=== PATIENT | male | born 1970 | race Caucasian/White ===

== ENCOUNTER 2023-12-02 23:01 | Emergency (ER) | payer OTHER ==
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
[2023-12-02 23:54] VITALS: RESP 16; TEMP 97.6
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
[2023-12-03] MEDS: LORazepam 2 MG/ML INJ IM STA (00:54)
[2023-12-03 01:03] VITALS: BP 133/52; PULSE 81
== END 2023-12-03 00:54 | disposition home or self-care (01) ==
LOC: EC 23:01
DX: S00.83XA Contusion of other part of head, initial encounter (principal); W05.2XXA Fall from non-moving motorized mobility scooter, initial encounter; Y93.55 Activity, bike riding
CPT/HCPCS: 70450; 70486; 72125; 99284

== ENCOUNTER 2024-02-10 21:29 | Emergency (ER) | payer OTHER, BC ==
[2024-02-10 22:16] VITALS: RESP 18
[2024-02-10 22:29] VITALS: TEMP 97.7
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
[2024-02-10 22:42] LABS: Basophils # (A) 0.1 k/uL (0-0.2); Basophils % (A) 1 %; Eosinophils # (A) 0.3 k/uL (0-0.7); Eosinophils % (A) 3 %; HCT 46.9 % (39.0-53.0); HGB 15.4 gm/dL (13.0-17.5); Lymphocytes % (A) 31 %; MCH 26.9 pg (25.0-35.0); MCHC 32.9 g/dL (31.0-37.0); MCV 81.8 fL (80.0-100.0); Mean Platelet Volume 6.7; Monocytes # (A) 0.5 k/uL (0-1.0); Monocytes % (A) 5 %; Neutrophils # (A) 5.5 k/uL (1.3-7.7); Neutrophils % (A) 58 %; Platelet Count 288 k/uL (150-450); RBC 5.73 m/uL (4.30-5.90); RDW 13.7 % (11.5-15.5); WBC 9.5 k/uL (3.8-10.6)
[2024-02-10 22:52] LABS: ALT 16 U/L (4-49); African American GFR (CKD) 87 (>60 ml/min/1.73 sqM); Albumin 4.8 g/dL (3.5-5.0); Anion Gap 13 mmol/L; Blood Urea Nitrogen 17 mg/dL (9-20); Calcium 8.9 mg/dL (8.4-10.2); Carbon Dioxide 18 mmol/L (22-30); Chloride 109 mmol/L (98-107); Glucose 91 mg/dL (74-99); Non-African American GFR(CKD) 76 (>60 ml/min/1.73 sqM); Sodium 140 mmol/L (137-145); Total Bilirubin 0.8 mg/dL (0.2-1.3); Total Protein 7.2 g/dL (6.3-8.2)
[2024-02-10] MEDS: IPRATROPIUM-ALBUTEROL 3 ML NEB INHALATION STA (22:53)
[2024-02-10 22:54] LABS: Partial Thromboplastin Time 25.5 sec (22.0-30.0); Prothrombin Time 10.9 sec (10.0-12.5)
[2024-02-10 23:07] LABS: AST 31 U/L (17-59); Alkaline Phosphatase 78 U/L (38-126); Potassium 4.7 mmol/L (3.5-5.1)
[2024-02-11 00:25] VITALS: BP 118/81; PULSE 72
--- NOTE | 2024-02-11 01:07 | XR ---
EXAM: XR Chest, 2 Views CLINICAL HISTORY: ITS.REASON XR Reason: difficulty breathing TECHNIQUE: Frontal and lateral views of the chest. COMPARISON: No pleural effusions. FINDINGS: Lungs: Unremarkable. No consolidative changes. Pleural space: Unremarkable. No pneumothorax. No pleural effusions. Heart: Heart is normal in size. No cardiomegaly. Mediastinum: Unremarkable. Normal mediastinal contour. Bones/joints: Osseous structures and soft tissues are unremarkable. No acute fracture. Normal alignment of the thoracic spine. IMPRESSION: No consolidative changes or pleural effusions.
== END 2024-02-11 00:25 | disposition home or self-care (01) ==
LOC: EC 21:29
DX: J44.1 Chronic obstructive pulmonary disease with (acute) exacerbation (principal); F17.200 Nicotine dependence, unspecified, uncomplicated
CPT/HCPCS: 36415; 71046; 80053; 83605; 84484; 85025; 85610; 85730; 93005; 94640; 99285

== ENCOUNTER 2024-04-08 17:53 | Observation (INO) | payer BC, OTHER ==
--- NOTE | 2024-04-08 18:10 | ED ---
Alcohol HPI - General Stated Complaint: ETOH Time Seen by Provider: 04/08/24 18:08 Source: patient, family, RN notes reviewed - History of Present Illness Initial Comments: 54-year-old male presents emergency department with his for a chief complaint of alcohol intoxication. Patient states that he would like to get help. Last drink was approximately 1 hour ago. Endorses history of alcohol withdrawal. He says that he is feeling "angry ". States that he has been feeling depressed and anxious over the past few years and has thoughts of wanting to kill himself. Denies history of suicidal attempts, he denies medication use of antidepressants. - Related Data Previous Rx's Medication Instructions Recorded predniSONE 60 mg PO DAILY #30 tab 02/11/24 Allergies Allergy/AdvReac Type Severity Reaction Status Date / Time No Known Allergies Allergy Verified 04/08/24 18:28 Review of Systems ROS Statement: Those systems with pertinent positive or pertinent negative responses have been documented in the HPI. ROS Other: All systems not noted in ROS Statement are negative. Past Medical History Past Medical History: COPD Past Surgical History: No Surgical Hx Reported Past Psychological History: Unable to Obtain Smoking Status: Current every day smoker Past Alcohol Use History: Daily Past Drug Use History: None Reported General Exam - General Exam Comments Initial Comments: Visual Physical Exam Vital signs reviewed General: Well-appearing, intoxicated, no acute distress. Head: Normocephalic, atraumatic Eyes: PERRLA, EOMI ENT: Airway patent Chest: Nonlabored breathing Skin: No visual rash, normal skin tone Neuro: Alert and oriented 3 Musculoskeletal: No gross abnormalities Course Vital Signs 04/08/24 18:24 Temperature 97.9 F Pulse Rate 72 Respiratory 18 Rate Blood Pressure 158/104 O2 Sat by Pulse 96 Oximetry Medical Decision Making - Medical Decision Making Was pt. sent in by a medical professional or institution (, PA, PLATFORM ATTENDANT, urgent care, hospital, or long term...) When possible be specific @ -No Did you speak to anyone other than the patient for history (EMS, parent, family, police, friend...)? What history was obtained from this source @ -No Did you review nursing and triage notes (agree or disagree)? Why? @ -I reviewed and agree with nursing and triage notes Were old charts reviewed (outside hosp., previous admission, EMS record, old EKG, old radiological studies, urgent care reports/EKG's, long term records)? Report findings @ -No old charts were reviewed Differential Diagnosis (chest pain, altered mental status, abdominal pain women, abdominal pain men, vaginal bleeding, weakness, fever, dyspnea, syncope, headache, dizziness, GI bleed, back pain, seizure, CVA, palpatations, mental health, musculoskeletal)? @ -Differential Mental Health Depression, anxiety, bipolar, psychosis, schizophrenia, borderline personality, situational depression, adjustment disorder, behavioral disorder, brain tumor, malingering, substance abuse, encephalopathy, medication reaction, dementia, hypothyroidism, degenerative neurologic disorder, lupus.... This is not meant to be all-inclusive list EKG interpreted by me (3pts min.). @ -None X-rays interpreted by me (1pt min.). @ -None done CT interpreted by me (1pt min.). @ -None done U/S interpreted by me (1pt. min.). @ -None done What testing was considered but not performed or refused? (CT, X-rays, U/S, labs)? Why? @ -None What meds were considered but not given or refused? Why? @ -None Did you discuss the management of the patient with other professionals (professionals i.e. , PA, PLATFORM ATTENDANT, lab, RT, psych nurse, social media executive, patrol police sergeant, teacher, civil preparedness officer, correctional case manager)? Give summary @ -i spoke with internal medicine PLATFORM ATTENDANT, Armaan Nguyen with [facility] in regard to the patient's presentation and alcohol intoxication. Patient is excepted for admission with psychiatry on consult when patient's blood alcohol levels within acceptable limits. Was smoking cessation discussed for >3mins.? @ -No Was critical care preformed (if so, how long)? @ -No Were there social determinants of health that impacted care today? How? (Homelessness, low income, unemployed, alcoholism, drug addiction, transportation, low edu. Level, literacy, decrease access to med. care, retirement, rehab)? @ -No Was there de-escalation of care discussed even if they declined (Discuss DNR or withdrawal of care, Hospice)? DNR status @ -No What co-morbidities impacted this encounter? (DM, HTN, Smoking, COPD, CAD, Cancer, CVA, ARF, Chemo, Hep., AIDS, mental health diagnosis, sleep apnea, morbid obesity)? @ -None Was patient admitted / discharged? Hospital course, mention meds given and route, prescriptions, significant lab abnormalities, going to OR and other p ertinent info. @ -Bedded. 54-year-old male with alcohol abuse. On exam patient is showing obvious signs of intoxication. Additionally he states that he has had feelings of wanting to kill himself. CBC grossly unremarkable, serum alcohol elevated at 399 which correlates to a time till sober of 1130 on 04/09/24. Patient is provided with 1 L fluid bolus in addition to vitamins and will be admitted to internal medicine with behavioral health on consult for further evaluation after patient serum alcohol level is within normal. case discussed with Dr. Gagnon Undiagnosed new problem with uncertain prognosis? @ -No Drug Therapy requiring intensive monitoring for toxicity (Heparin, Nitro, Insulin, Cardizem)? @ -No Were any procedures done? @ -No Diagnosis/symptom? @ -alcohol intoxication, suicidal ideation Acute, or Chronic, or Acute on Chronic? @ -acute Uncomplicated (without systemic symptoms) or Complicated (systemic symptoms)? @ uncomplicated Side effects of treatment? @ -No Exacerbation, Progression, or Severe Exacerbation? @ -No Poses a threat to life or bodily function? How? (Chest pain, USA, VA, pneumonia, PE, COPD, DKA, ARF, appy, cholecystitis, CVA, Diverticulitis, Homicidal, Suicidal, threat to staff... and all critical care pts) @ -No - Lab Data Result diagrams: 04/08/24 18:42 04/08/24 18:42 Lab Results 04/08/24 04/08/24 Range/Units 18:42 18:42 WBC 9.1 (3.8-10.6) k/uL RBC 6.31 H (4.30-5.90) m/uL Hgb 16.8 (13.0-17.5) gm/dL Hct 52.0 (39.0-53.0) % MCV 82.4 (80.0-100.0) fL MCH 26.6 (25.0-35.0) pg MCHC 32.3 (31.0-37.0) g/dL RDW 13.6 (11.5-15.5) % Plt Count 339 (150-450) k/uL MPV 6.3 Neutrophils % 61 % Lymphocytes % 31 % Monocytes % 4 % Eosinophils % 2 % Basophils % 1 % Neutrophils # 5.6 (1.3-7.7) k/uL Lymphocytes # 2.8 (1.0-4.8) k/uL Monocytes # 0.3 (0-1.0) k/uL Eosinophils # 0.1 (0-0.7) k/uL Basophils # 0.1 (0-0.2) k/uL Sodium 146 H (137-145) mmol/L Potassium 4.2 (3.5-5.1) mmol/L Chloride 107 (98-107) mmol/L Carbon Dioxide 25 (22-30) mmol/L Anion Gap 14 mmol/L BUN 15 (9-20) mg/dL Creatinine 1.09 (0.66-1.25) mg/dL Est GFR (CKD-EPI)AfAm 89 (>60 ml/min/1.73 sqM) Est GFR (CKD-EPI)NonAf 77 (>60 ml/min/1.73 sqM) Glucose 92 (74-99) mg/dL Calcium 9.4 (8.4-10.2) mg/dL Phosphorus 3.5 (2.5-4.5) mg/dL Magnesium 2.2 (1.6-2.3) mg/dL Total Bilirubin 0.8 (0.2-1.3) mg/dL AST 31 (17-59) U/L ALT 22 (4-49) U/L Alkaline Phosphatase 133 H (38-126) U/L Total Protein 7.9 (6.3-8.2) g/dL Albumin 5.1 H (3.5-5.0) g/dL Lipase 149 (23-300) U/L Serum Alcohol 399 H* mg/dL Disposition Clinical Impression: Alcohol abuse, Alcohol intoxication, Suicidal ideation Disposition: ADMITTED IP TO THIS HOSP Condition: Serious Is patient prescribed a controlled substance at d/c from ED?: No Referrals: None,Stated [Primary Care Provider] - 1-2 days Decision to Admit Reason: Admit from EC Decision Date: 04/08/24 Decision Time: 20:00
[2024-04-08] MEDS: SODIUM CHLORIDE 0.9% 1,000 ML IV STA (18:48)
[2024-04-08] MEDS: THIAMINE 100 MG/ML 2 ML VIAL IM STA (18:49)
[2024-04-08] MEDS: FOLIC ACID 1 MG TAB PO STA (18:54)
[2024-04-08 18:57] LABS: Basophils # (A) 0.1 k/uL (0-0.2); Basophils % (A) 1 %; Eosinophils # (A) 0.1 k/uL (0-0.7); Eosinophils % (A) 2 %; HGB 16.8 gm/dL (13.0-17.5); Lymphocytes # (A) 2.8 k/uL (1.0-4.8); Lymphocytes % (A) 31 %; MCH 26.6 pg (25.0-35.0); MCHC 32.3 g/dL (31.0-37.0); MCV 82.4 fL (80.0-100.0); Mean Platelet Volume 6.3; Monocytes # (A) 0.3 k/uL (0-1.0); Monocytes % (A) 4 %; Neutrophils # (A) 5.6 k/uL (1.3-7.7); Neutrophils % (A) 61 %; Platelet Count 339 k/uL (150-450); RBC 6.31 m/uL (4.30-5.90); RDW 13.6 % (11.5-15.5); WBC 9.1 k/uL (3.8-10.6)
[2024-04-08 19:10] LABS: ALT 22 U/L (4-49); AST 31 U/L (17-59); African American GFR (CKD) 89 (>60 ml/min/1.73 sqM); Albumin 5.1 g/dL (3.5-5.0); Alkaline Phosphatase 133 U/L (38-126); Anion Gap 14 mmol/L; Blood Urea Nitrogen 15 mg/dL (9-20); Calcium 9.4 mg/dL (8.4-10.2); Carbon Dioxide 25 mmol/L (22-30); Chloride 107 mmol/L (98-107); Glucose 92 mg/dL (74-99); Lipase 149 U/L (23-300); Magnesium 2.2 mg/dL (1.6-2.3); Non-African American GFR(CKD) 77 (>60 ml/min/1.73 sqM); Phosphorus 3.5 mg/dL (2.5-4.5); Potassium 4.2 mmol/L (3.5-5.1); Sodium 146 mmol/L (137-145); Total Bilirubin 0.8 mg/dL (0.2-1.3); Total Protein 7.9 g/dL (6.3-8.2)
[2024-04-08] MEDS: LORazepam 2 MG/ML INJ IV STA (19:20)
[2024-04-08 19:28] LABS: Alcohol 399 mg/dL
[2024-04-08] MEDS: NICOTINE 7MG/24HR PATCH TRANSDERM STA (19:32)
[2024-04-08] MEDS ORDERED: NALOXONE 0.4 MG/ML 1 ML VIAL IV PRN (20:00)
[2024-04-08] MEDS ORDERED: LORazepam 1 MG TAB PO PRN (20:00)
[2024-04-08 20:27] LABS: Cocaine Screen,Urine Not Detected (NotDetected); Phencyclidine Screen,Urine Not Detected (NotDetected); Urn Cannabinoid Scrn Not Detected (NotDetected)
[2024-04-08 20:28] LABS: Amphetamine Screen,Urine Not Detected (NotDetected); Barbiturate Screen,Urine Not Detected (NotDetected); Benzodiazepines Screen,Urine Not Detected (NotDetected); Methadone Screen, Urine Not Detected (NotDetected); Opiate Screen,Urine Not Detected (NotDetected); Oxycodone Screen, Urine Not Detected (NotDetected); Tricyclic Antidepressant,Urine Not Detected (NotDetected)
[2024-04-08] MEDS: SODIUM CHLORIDE 0.9% 1,000 ML IV SCH (21:55)
[2024-04-09 10:59] LABS: ALT 22 U/L (10-49); AST 24 U/L (14-35); Albumin 4.7 g/dL (3.8-4.9); Albumin/Globulin Ratio 2.04 Ratio (1.60-3.17); Alkaline Phosphatase 142 U/L (41-126); Calcium 9.4 mg/dL (8.7-10.3); Carbon Dioxide 18.5 mmol/L (21.6-31.8); Chloride 103 mmol/L (96-109); Globulin 2.3 g/dL (1.6-3.3); Glucose 52 mg/dL (70-110); Potassium 4.2 mmol/L (3.5-5.5); Sodium 143 mmol/L (135-145); Total Bilirubin 0.8 mg/dL (0.3-1.2)
[2024-04-09 11:00] LABS: Basophils % (A) 1.1 %; Eosinophils % (A) 1.1 %; HCT 49.1 % (39.6-50.0); HGB 16.6 g/dL (13.0-17.0); Lymphocytes # (A) 1.97 X 10*3/uL (0.90-5.00); Lymphocytes % (A) 21.9 %; MCH 27.4 pg (27.0-32.0); MCHC 33.8 g/dL (32.0-37.0); Mean Platelet Volume 8.9 FL (9.5-12.2); Monocytes # (A) 0.38 X 10*3/uL (0.20-1.00); Monocytes % (A) 4.2 %; NRBC Per 100 WBC 0 X 10*3/uL (0.00-0.01); Neutrophils # (A) 6.43 X 10*3/uL (1.80-7.70); Neutrophils % (A) 71.4 %; Platelet Count 254 X 10*3/uL (140-440); RBC 6.06 X 10*6/uL (4.40-5.60); WBC 9.01 X 10*3/uL (4.50-10.00)
--- NOTE | 2024-04-09 13:32 | P.HPIM ---
History of Present Illness H&P Date: 04/09/24 History of present illness; patient is a 54-year-old gentleman with past medical history significant for COPD who presented to the ER for alcohol detox. Patient stated that he has been feeling depressed for the last few years and has been consuming a lot of alcohol. Patient states that he feels angry all the time and has been feeling anxious. Patient has been having thoughts of hurting himself. Patient has not attempted any suicide attempts so far. Patient wants to get alcohol detox. Because of these symptoms, patient was evaluated in the ER. Initial lab work done in the ER showed A1c 9.1, hemoglobin 16.8, platelet count 339, sodium 146, potassium 4.2, BUN 15, creatinine 1.09, alk phos 133, Urine tox screen negative Serum alcohol 399 Patient admitted to internal medicine service REVIEW OF SYSTEMS: CONSTITUTIONAL: No fever, no malaise, no fatigue. HEENT: No recent visual problems or hearing problems. Denied any sore throat. CARDIOVASCULAR: No chest pain, orthopnea, PND, no palpitations, no syncope. PULMONARY: No shortness of breath, no cough, no hemoptysis. GASTROINTESTINAL: No diarrhea, no nausea, no vomiting, no abdominal pain. NEUROLOGICAL: No headaches, no weakness, no numbness. HEMATOLOGICAL: Denies any bleeding or petechiae. GENITOURINARY: Denies any burning micturition, frequency, or urgency. MUSCULOSKELETAL/RHEUMATOLOGICAL: Denies any joint pain, swelling, or any muscle pain. ENDOCRINE: Denies any polyuria or polydipsia. The rest of the 14-point review of systems is negative. PHYSICAL EXAMINATION: GENERAL: The patient is alert and oriented x3, anxious HEENT: Pupils are round and equally reacting to light. EOMI. No scleral icterus. No conjunctival pallor. Normocephalic, atraumatic. No pharyngeal erythema. No thyromegaly. CARDIOVASCULAR: S1 and S2 present. No murmurs, rubs, or gallops. PULMONARY: Chest is clear to auscultation, no wheezing or crackles. ABDOMEN: Soft, nontender, nondistended, normoactive bowel sounds. No palpable organomegaly. MUSCULOSKELETAL: No joint swelling or deformity. EXTREMITIES: No cyanosis, clubbing, or pedal edema. NEUROLOGICAL: Gross neurological examination did not reveal any focal deficits. SKIN: No rashes. Assessment and plan Alcohol intoxication Impending alcohol detox Hypernatremia Major depression Suicidal ideations Monitor vital signs Monitor CBC Monitor CMP Continue telemetry monitoring Elopement precautions Ordered CIWA protocol Ordered thiamine and folic acid Ordered antiemetics ordered IV fluids Consult psychiatry Labs and medication were reviewed.. Continue same treatment. Continue with symptomatic treatment. Resume home medication. Monitor labs and vitals. DVT and GI prophylaxis. Further recommendations as per clinical course of the patient Dictation was produced using [employer] dictation software. please excuse any grammatical, word or spelling errors. Past Medical History Past Medical History: COPD Past Surgical History: No Surgical Hx Reported Past Psychological History: Unable to Obtain Smoking Status: Current every day smoker Past Alcohol Use History: Daily Past Drug Use History: None Reported Medications and Allergies Home Medications Medication Instructions Recorded Confirmed Type No Known Home Medications 04/08/24 04/08/24 History Allergies Allergy/AdvReac Type Severity Reaction Status Date / Time No Known Allergies Allergy Verified 04/08/24 20:20 Physical Exam Vitals: Vital Signs Temp Pulse Resp BP Pulse Ox 04/09/24 05:55 95 18 129/79 97 04/08/24 18:24 97.9 F 72 18 158/104 96 Intake and Output 04/08/24 04/09/24 04/09/24 22:59 06:59 14:59 Other: Weight 65.771 kg Results CBC & Chem 7: 04/09/24 07:48 04/09/24 07:48 Labs: Abnormal Lab Results - Last 24 Hours (Table) 04/08/24 04/08/24 Range/Units 18:42 18:42 RBC 6.31 H (4.30-5.90) m/uL Sodium 146 H (137-145) mmol/L Alkaline Phosphatase 133 H (38-126) U/L Albumin 5.1 H (3.5-5.0) g/dL Serum Alcohol 399 H* mg/dL
[2024-04-09] MEDS ORDERED: traZODone HCL 50 MG TAB PO PRN (14:37)
--- NOTE | 2024-04-09 14:45 | P.CN ---
Psychiatric Consult - . 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 His blood alcohol level was 399. Sodium was elevated at 146. Patient's nurse states that he has been doing fairly well no significant complaints at this time and is currently on CIWA protocol with as needed Ativan vital signs appear to be fairly stable. Patient was seen laying in the bed agreeable to speak to specification writer. He was a bit concrete, did however state that he drank about a bottle of whiskey and then states that he "blacked out". He claims that he "probably said some words". Claims that he does not have any big stressors in his life, states that his family is fairly supportive. He was fairly future oriented talking about his job and family, he assured specification writer that he is not endorsing any suicidal thoughts and states that he wants to live for his family. Claims that his sleep and appetite are fair. He is denying depression at this time however did state that he does have some anxiety, was agreeable to try BuSpar for it. He is denying any current withdrawal symptoms no shakes palpitations or history of seizures. He claims that he is not interested in going to rehab at this time however was interested in getting resources for outpatient follow-up and also AA meetings. He was interested in trying naltrexone for alcohol cravings. At this time patient denies any suicidal or homical ideations, intent or plan. Patient denies any auditory, visual hallucinations and denies any paranoia or delusions. Patients admits to using etoh regularly, claims that he is never been to rehab or never had a DUI in the past. States that he also smokes cigarettes. Denies any other recreational drug use PAST PSYCHIATRIC HISTORY: Patient has a a history of alcohol use disorder. Patient denies being on any psychiatric medications. Patient denies any previous psychiatric hospitalizations. Patient denies any psychiatric outpatient follow-up. Patient denies any history of suicide attempts in the past. PAST MEDICAL HISTORY:Past Medical History: COPD Past Surgical History: No Surgical Hx Reported Past Psychological History: Unable to Obtain Smoking Status: Current every day smoker Past Alcohol Use History: Daily Past Drug Use History: None Reported ALLERGIES: as per EMR. CHEMICAL DEPENDENCY HISTORY: as per HPI. FAMILY PSYCHIATRIC/SUBSTANCE USE HISTORY: Denies SOCIAL HISTORY: Patient was born and raised in [place] and also in [place]. 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 States that he was in senior living previously for disorderly conduct, denies any history of DUIs. MENTAL STATUS EXAM: General Appearance: Patient appears to be thin, wearing glasses, unshaven, stated age is alert, pleasant, and temps to be cooperative. Patient appears to have fair hygiene and grooming wearing hospital gown with fair eye contact. Behavior: Patient is calmly lying in bed without any agitated behavior. Attempts to cooperate Speech: Patient's speech is fluent and nonpressured. Mood/Affect: Patient reports their mood is "just a bit anxious", affect is congruent Suicidality/Homicidality: Patient denies having any suicidal or homicidal ideation intent or plan. Perceptions: Patient denies any visual hallucinations and denies any auditory hallucinations Though content/process: There is no evidence of any delusional thought content and thought process is linear and goal-directed. Future oriented Memory and concentration: AOX3, grossly intact for the purposes of this session. Can spell "WORLD" backwards Judgment and insight: Poor-fair IMPRESSIONS: Adjustment disorder Alcohol use disorder Nicotine dependence PLAN: -At this time patient DOES NOT meet criteria for inpatient psychiatric admission. -Would recommend the following medication changes/additions: Patient is interested in trying naltrexone 50 mg p.o. daily for alcohol cravings, BuSpar 10 mg twice daily for anxiety. Trazodone 50 mg nightly as needed for sleep. -CIWA protocol with PRN Ativan for alcohol withdrawal. Continue to monitor vital signs. -rodding anode worker to provide patient with outpatient mental health/psychiatry resources for appropriate follow up upon discharge -Lead Pl Sql Developer spoke with patient about substance abuse and the harmful effects on medical and mental health, patient verbally understood and agreed. -rodding anode worker to provide patient substance use treatment resources including AA/NA meetings in the community. -rodding anode worker to provide patient with access line number to call for inpatient substance rehab -Communicated plan to patient's nurse -Psychiatry will sign off at this time -Please contact with any questions. 04/09/24 14:38
[2024-04-09] MEDS: NALTREXONE HCL 50 MG TAB PO SCH (16:23)
[2024-04-09] MEDS: NICOTINE 21MG/24HR PATCH TRANSDERM SCH (16:23)
[2024-04-09] MEDS: busPIRone HCl 10 MG TAB PO SCH (20:17)
[2024-04-09] MEDS: lisinopriL 10 MG TAB PO SCH (21:43)
[2024-04-10 09:08] LABS: Basophils # (A) 0.07 X 10*3/uL (0.00-0.10); Basophils % (A) 0.9 %; Eosinophils # (A) 0.19 X 10*3/uL (0.04-0.35); Eosinophils % (A) 2.4 %; HCT 45.3 % (39.6-50.0); HGB 15.2 g/dL (13.0-17.0); Lymphocytes # (A) 2.25 X 10*3/uL (0.90-5.00); Lymphocytes % (A) 27.9 %; MCH 27.3 pg (27.0-32.0); MCHC 33.6 g/dL (32.0-37.0); MCV 81.5 FL (80.0-97.0); Mean Platelet Volume 9.3 FL (9.5-12.2); Monocytes # (A) 0.64 X 10*3/uL (0.20-1.00); Monocytes % (A) 7.9 %; NRBC Per 100 WBC 0 X 10*3/uL (0.00-0.01); Neutrophils # (A) 4.88 X 10*3/uL (1.80-7.70); Neutrophils % (A) 60.4 %; Platelet Count 222 X 10*3/uL (140-440); RBC 5.56 X 10*6/uL (4.40-5.60); RDW 13.6 % (11.5-14.5); WBC 8.07 X 10*3/uL (4.50-10.00)
[2024-04-10 10:44] LABS: ALT 17 U/L (10-49); AST 20 U/L (14-35); Albumin 4.3 g/dL (3.8-4.9); Albumin/Globulin Ratio 2.26 Ratio (1.60-3.17); Alkaline Phosphatase 127 U/L (41-126); Blood Urea Nitrogen 19.8 mg/dL (9.0-27.0); Calcium 9.1 mg/dL (8.7-10.3); Carbon Dioxide 24.4 mmol/L (21.6-31.8); Chloride 100 mmol/L (96-109); Globulin 1.9 g/dL (1.6-3.3); Glucose 97 mg/dL (70-110); Potassium 4.1 mmol/L (3.5-5.5); Sodium 138 mmol/L (135-145); Total Bilirubin 1.8 mg/dL (0.3-1.2); Total Protein 6.2 g/dL (6.2-8.2)
--- NOTE | 2024-04-10 11:13 | P.PN ---
Subjective History of present illness; patient is a 54-year-old gentleman with past medical history significant for COPD who presented to the ER for alcohol detox. Patient stated that he has been feeling depressed for the last few years and has been consuming a lot of alcohol. Patient states that he feels angry all the time and has been feeling anxious. Patient has been having thoughts of hurting himself. Patient has not attempted any suicide attempts so far. Patient wants to get alcohol detox. Because of these symptoms, patient was evaluated in the ER. Initial lab work done in the ER showed A1c 9.1, hemoglobin 16.8, platelet count 339, sodium 146, potassium 4.2, BUN 15, creatinine 1.09, alk phos 133, Urine tox screen negative Serum alcohol 399 Patient admitted to internal medicine service 04/10 This is a pleasant 54 years old male who presents with signs symptoms of alcohol intoxication and at risk of alcohol withdrawal He is evaluated by psychiatrist and found not to have criteria for inpatient psych admission This morning he was complaining from frequent loose stool, with some abdominal discomfort with no overt abdominal pain. However on exam his abdomen is soft with no tenderness, he is able to tolerate diet with no vomiting but he looks little bit withdrawn from his diarrhea and bothering him. He is afebrile, no leukocytosis. The suspicion of C. difficile is very low. We will send the sample anyway. Start Imodium Continue with CIWA protocol Objective - Vital Signs Vital signs: Vital Signs Temp 97.9 F 04/10/24 07:42 Pulse 67 04/10/24 07:42 Resp 17 04/10/24 07:42 BP 115/78 04/10/24 07:42 Pulse Ox 96 04/10/24 07:42 FiO2 Intake & Output 04/09/24 04/10/24 04/10/24 18:59 06:59 18:59 Weight 65.771 kg Other: Voiding Method Toilet # Voids 3 - Exam GENERAL: The patient is alert and oriented x3, not in any acute distress. Well developed, well nourished. HEENT: Pupils are round and equally reacting to light. EOMI. No scleral icterus. No conjunctival pallor. Normocephalic, atraumatic. No pharyngeal erythema. No thyromegaly. CARDIOVASCULAR: S1 and S2 present. No murmurs, rubs, or gallops. PULMONARY: Chest is clear to auscultation, no wheezing , no crackles. ABDOMEN: Soft, nontender, nondistended, normoactive bowel sounds. No palpable organomegaly. MUSCULOSKELETAL: No joint swelling or deformity. EXTREMITIES: No cyanosis, clubbing, or pedal edema. NEUROLOGICAL: Gross neurological examination did not reveal any focal deficits. SKIN: No rashes. no petechiae. - Labs CBC & Chem 7: 04/10/24 02:41 04/10/24 02:41 Labs: Abnormal Lab Results - Last 24 Hours (Table) 04/10/24 04/10/24 Range/Units 02:41 02:41 MPV 9.3 L (9.5-12.2) FL Anion Gap 13.60 H (4.00-12.00) mmol/L Total Bilirubin 1.8 H (0.3-1.2) mg/dL Alkaline Phosphatase 127 H (41-126) U/L Assessment and Plan Assessment: Alcohol intoxication at risk of alcohol withdrawal Depression, patient evaluated by psychiatrist and he does not meet criteria for inpatient admission Alcoholic gastroenteritis Plan: Continue with CIWA protocol and thiamine Add Imodium Check C. difficile Encourage oral hydration Patient evaluated by psychiatrist, no need for inpatient psychiatric admission Patient was counseled to quit smoking and encouraged to go to [facility] and he verbalized understanding and acceptance Labs and medication were reviewed.. Continue same treatment. Continue with symptomatic treatment. Resume home medication. Monitor labs and vitals. DVT and GI prophylaxis. Further recommendations as per clinical course of the patient DVT prophylaxis: Subcutaneous heparin GI Prophylaxis: Ppi Prognosis is guarded
[2024-04-10] MEDS: LOPERAMIDE 2 MG CAP PO STA (11:41)
[2024-04-10] MEDS: PANTOPRAZOLE 40 MG/10 ML VIAL IVP SCH (11:41)
[2024-04-10] MEDS: CALCIUM CARBONATE 500 MG CHEWABLE PO PRN (12:19)
[2024-04-10] MEDS: ACETAMINOPHEN TAB 325 MG TAB PO PRN (12:19)
[2024-04-10] MEDS: ONDANSETRON 4 MG/2 ML VIAL IVP PRN (12:21)
[2024-04-10] MEDS: LOPERAMIDE 2 MG CAP PO PRN (18:19)
[2024-04-10] MEDS: HEPARIN SODIUM,PORCINE 5,000 UNIT/ML 1 ML VIAL SQ SCH (22:08)
[2024-04-11 02:14] VITALS: RESP 17
[2024-04-11 09:10] VITALS: BP 144/93; PULSE 89; TEMP 98.3
[2024-04-11] MEDS: CHOLESTYRAMINE (WITH SUGAR) 4 GM PACKET PO SCH (09:18)
[2024-04-11] MEDS: ONDANSETRON 4 MG/2 ML VIAL IVP STA (09:18)
[2024-04-11 10:16] LABS: African American GFR (CKD) 89 (>60 ml/min/1.73 sqM); Anion Gap 14 mmol/L; Blood Urea Nitrogen 20 mg/dL (9-20); Calcium 10.3 mg/dL (8.4-10.2); Carbon Dioxide 21 mmol/L (22-30); Chloride 99 mmol/L (98-107); Glucose 139 mg/dL (74-99); Non-African American GFR(CKD) 77 (>60 ml/min/1.73 sqM); Potassium 3.8 mmol/L (3.5-5.1); Sodium 134 mmol/L (137-145)
[2024-04-11] MEDS ORDERED: PANTOPRAZOLE 40 MG/10 ML VIAL IVP ONE (13:00)
--- NOTE | 2024-04-11 13:06 | P.DS ---
Providers Date of admission: 04/08/24 19:24 Attending physician: Keshia Meehan MD Consults: 04/09/24 10:49 Consult Physician Routine Consulting Provider: Joshua Kincaid Consult Reason/Comments: Alcohol intoxication, depression, suicidal ideations Do you want consulting provider notified?: Yes Primary care physician: Stated None Hospital Course: Diagnoses: Alcohol intoxication at risk of alcohol withdrawal Depression, patient evaluated by psychiatrist and he does not meet criteria for inpatient admission Alcoholic gastroenteritis Hospital course: patient is a 54-year-old gentleman with past medical history significant for COPD who presented to the ER for alcohol detox. Patient stated that he has been feeling depressed for the last few years and has been consuming a lot of alcohol. Patient states that he feels angry all the time and has been feeling anxious. Patient has been having thoughts of hurting himself. Patient has not attempted any suicide attempts in the past. Patient was admitted for alcoholic intoxication and alcohol withdrawal. Patient was doing well prior to discharge he does not require any benzodiazepine for the last 24 hours with no withdrawal symptoms. Also patient evaluated by psychiatrist and patient does not meet inpatient criteria for psych unit. Patient started on some anxiety and insomnia medication like BuSpar and trazodone. Patient was not very adherent to BuSpar although. He denies any depression or suicidal/homicidal ideation upon discharge or during hospital stay. Patient has some abdominal discomfort and vomiting and loose stool,This thought most likely secondary to alcohol effect today in the afternoon patient showed significant improvement of movement, he could tolerate his lunch. No abdominal pain or tenderness. Patient was asking and eager to go home today, at bedside and as per bedside nurse patient is ready for going home. Patient denies any other new complaint. Patient will be discharged on some antiacids and nausea medication, patient informed and he agrees Lisinopril was started on for his blood pressure is better controlled upon discharge. Patient was acting to need to check his kidney function and electr olytes within 1 to 2 weeks and he told me he will call and make appointment to check his blood test. Patient was cleared for discharge by psychiatrist and the sign off the case Problems and management plan were discussed with the patient and he verbalized understanding and acceptance Patient was found stable and can be discharged home in guarded prognosis however he needs follow-up as an outpatient. Patient was instructed to follow up with PCP within one week and patient agrees Physical exam Gen: patient is a AAOx3, no distress CVS: S1-S2, RRR, no murmur Lungs: B/L CTA, no wheezing Abdomen: soft, no distention, no tenderness, positive bowel sounds Extremity: no leg edema or induration Time spent more than 35 minutes Patient Condition at Discharge: Serious Plan - Discharge Summary Discharge Rx Participant: Yes New Discharge Prescriptions: New lisinopriL [Zestril] 10 mg PO DAILY #30 tab Ondansetron [Zofran] 4 mg PO Q6HR PRN 3 Days #20 tab PRN Reason: Nausea And Vomiting busPIRone HCl [Buspar] 10 mg PO BID #60 tab traZODone HCL [Desyrel] 50 mg PO HS PRN #30 tab PRN Reason: Insomnia Nicotine 21Mg/24Hr Patch [Habitrol] 1 patch TRANSDERM DAILY #3 patch Omeprazole [PriLOSEC] 20 mg PO AC-BRKFST 30 Days #30 cap Acetaminophen Tab [Tylenol] 650 mg PO Q6HR PRN tab PRN Reason: Mild Pain Or Fever > 100.5 Discharge Medication List Acetaminophen Tab [Tylenol] 650 mg PO Q6HR PRN tab 04/11/24 [Rx] Nicotine 21Mg/24Hr Patch [Habitrol] 1 patch TRANSDERM DAILY #3 patch 04/11/24 [Rx] Omeprazole [PriLOSEC] 20 mg PO AC-BRKFST 30 Days #30 cap 04/11/24 [Rx] Ondansetron [Zofran] 4 mg PO Q6HR PRN 3 Days #20 tab 04/11/24 [Rx] busPIRone HCl [Buspar] 10 mg PO BID #60 tab 04/11/24 [Rx] lisinopriL [Zestril] 10 mg PO DAILY #30 tab 04/11/24 [Rx] traZODone HCL [Desyrel] 50 mg PO HS PRN #30 tab 04/11/24 [Rx] Follow up Appointment(s)/Referral(s): None,Stated [Primary Care Provider] - 1-2 days Activity/Diet/Wound Care/Special Instructions: Regular diet. Encourage oral hydration Activity is restricted till you see your doctor We recommend keep abstinence from alcohol We recommend to contact your health insurance provider to find a nearby primary care doctor. Please call to make an appointment within 1 week We recommend to check your blood test with your doctor within 1 week including but not limited to kidney function and electrolytes Discharge/Stand Alone Forms: [facility], Outpatient Counseling, Inp Substance Abuse Facilities
[2024-04-12] MEDS ORDERED: PANTOPRAZOLE 40 MG TABLET PO SCH (07:30)
== END 2024-04-11 13:32 | disposition home or self-care (01) ==
LOC: EC 17:53 → INTOOBSV 19:24 → 4SSUR 19:24
PROVIDERS: ADMIT Internal Medicine; ATTEND Internal Medicine
DX: F10.129 Alcohol abuse with intoxication, unspecified (principal); F43.22 Adjustment disorder with anxiety; K29.20 Alcoholic gastritis without bleeding; E87.0 Hyperosmolality and hypernatremia; R45.851 Suicidal ideations; F32.9 Major depressive disorder, single episode, unspecified; J44.9 Chronic obstructive pulmonary disease, unspecified; F17.210 Nicotine dependence, cigarettes, uncomplicated; Y90.8 Blood alcohol level of 240 mg/100 ml or more; G47.00 Insomnia, unspecified; Z71.6 Tobacco abuse counseling
CPT/HCPCS: 36415; 80048; 80053; 80306; 80320; 82075; 83690; 83735; 84100; 85025; 87324; 96361; 96372; 96374; 96375; 96376; 99284

== ENCOUNTER → 2024-05-13 | Outpatient (CLI) | payer BC, OTHER ==
--- NOTE | 2024-05-13 17:28 | XR ---
EXAMINATION TYPE: XR hand complete 3 views LT DATE OF EXAM: 05/13/2024 Comparison: None Clinical History: 54-year-old male M25.542 PAIN IN JOINTS OF LEFT HAND Findings: There is chronic appearing bony deformity to the tuft of the third distal phalanx, likely sequela of old injury. Mild to moderate degenerative spurring at the third DIP joint. Mild degenerative spurring at the first CMC joint. No acute fracture, subluxation, dislocation. Impression: Suspect bony deformity at the third distal phalangeal tuft as a sequela of old injury. [id number] te osteoarthritic change third DIP joint. Mild degenerative change base of the thumb. [facility], , 05/13/2024 5:26 PM
== END | disposition home or self-care (01) ==
LOC: RADXRMAIN 16:30
PROVIDERS: ATTEND Internal Medicine
DX: M19.041 Primary osteoarthritis, right hand (principal)

== ENCOUNTER 2024-09-16 12:20 | Emergency (ER) | payer OTHER ==
--- NOTE | 2024-09-16 13:30 | ED ---
Psych HPI - General Chief Complaint: Psychiatric Symptoms Stated Complaint: ETOH Time Seen by Provider: 09/16/24 13:28 Source: patient, family, RN notes reviewed Mode of arrival: ambulatory - History of Present Illness Initial Comments: 54-year-old male presenting for acute alcohol intoxication. states she brought patient in as he has been drinking approximately a pint per day for the past 5 days and he is reporting suicidal ideation. Denies homicidal ideation. - Related Data Previous Rx's Medication Instructions Recorded Acetaminophen Tab [Tylenol] 650 mg PO Q6HR PRN tab 04/11/24 Nicotine 21Mg/24Hr Patch [Habitrol] 1 patch TRANSDERM DAILY #3 patch 04/11/24 Omeprazole [PriLOSEC] 20 mg PO AC-BRKFST 30 Days #30 cap 04/11/24 Ondansetron [Zofran] 4 mg PO Q6HR PRN 3 Days #20 tab 04/11/24 busPIRone HCl [Buspar] 10 mg PO BID #60 tab 04/11/24 lisinopriL [Zestril] 10 mg PO DAILY #30 tab 04/11/24 traZODone HCL [Desyrel] 50 mg PO HS PRN #30 tab 04/11/24 Allergies Allergy/AdvReac Type Severity Reaction Status Date / Time No Known Allergies Allergy Verified 09/16/24 12:50 Review of Systems ROS Statement: Those systems with pertinent positive or pertinent negative responses have been documented in the HPI. ROS Other: All systems not noted in ROS Statement are negative. Past Medical History Past Medical History: COPD History of Any Multi-Drug Resistant Organisms: None Reported Past Surgical History: No Surgical Hx Reported Past Psychological History: Anxiety, Depression Smoking Status: Current every day smoker Past Alcohol Use History: Daily Past Drug Use History: None Reported General Exam Limitations: no limitations General appearance: alert, in no apparent distress, appears intoxicated Head exam: Present: atraumatic, normocephalic, normal inspection Neurological exam: Present: alert, oriented X3, CN II-XII intact Psychiatric exam: Present: normal affect, normal mood, suicidal ideation. Absent: homicidal ideation Skin exam: Present: warm, dry, intact, normal color. Absent: rash Course Vital Signs 09/16/24 09/16/24 12:45 14:47 Temperature 97 F L 97.4 F L Pulse Rate 84 83 Respiratory 20 18 Rate Blood Pressure 163/86 157/97 O2 Sat by Pulse 94 L 93 L Oximetry Medical Decision Making - Medical Decision Making Was pt. sent in by a medical professional or institution (, [facility], [employer]ER, urgent care, hospital, or halfway...) When possible be specific @ -No Did you speak to anyone other than the patient for history (EMS, parent, family, police, friend...)? What history was obtained from this source @ -Patient's supplemented history Did you review nursing and triage notes (agree or disagree)? Why? @ -I reviewed and agree with nursing and triage notes Were old charts reviewed (outside hosp., previous admission, EMS record, old EKG, old radiological studies, urgent care reports/EKG's, halfway records)? Report findings @ -No old charts were reviewed Differential Diagnosis (chest pain, altered mental status, abdominal pain women, abdominal pain men, vaginal bleeding, weakness, fever, dyspnea, syncope, headache, dizziness, GI bleed, back pain, seizure, CVA, palpatations, mental health, musculoskeletal)? @ -Differential Mental Health Depression, anxiety, bipolar, psychosis, schizophrenia, borderline personality, situational depression, adjustment disorder, behavioral disorder, brain tumor, malingering, substance abuse, encephalopathy, medication reaction, dementia, hypothyroidism, degenerative neurologic disorder, lupus.... This is not meant to be all-inclusive list EKG interpreted by me (3pts min.). @ -None X-rays interpreted by me (1pt min.). @ -None done CT interpreted by me (1pt min.). @ -None done U/S interpreted by me (1pt. min.). @ -None done What testing was considered but not performed or refused? (CT, X-rays, U/S, labs)? Why? @ -None What meds were considered but not given or refused? Why? @ -None Did you discuss the management of the patient with other professionals (professionals i.e. [facility]unez, [employer]BLER, lab, RT, psych nurse, social scientist, senior research manager, teacher, chief commercial officer, case aide)? Give summary @ -I spoke with Dr. Norman who accepted admission for acute alcohol intoxication with psych consult Was smoking cessation discussed for >3mins.? @ -No Was critical care preformed (if so, how long)? @ -No Were there social determinants of health that impacted care today? How? (Homelessness, low income, unemployed, alcoholism, drug addiction, transportation, low edu. Level, literacy, decrease access to med. care, group home, rehab)? @ -No Was there de-escalation of care discussed even if they declined (Discuss DNR or withdrawal of care, Hospice)? DNR status @ -No What co-morbidities impacted this encounter? (DM, HTN, Smoking, COPD, CAD, Cancer, CVA, ARF, Chemo, Hep., AIDS, mental health diagnosis, sleep apnea, morbid obesity)? @ -None Was patient admitted / discharged? Hospital course, mention meds given and route, prescriptions, significant lab abnormalities, going to OR and other pertinent info. @ -AGAINST MEDICAL ADVICE. This is a 54-year-old male presenting for acute alcohol intoxication. Patient's reports he been drinking large amounts of alcohol over the past 5 days. also reports patient has been making suicidal comments. Patient is clearly intoxicated on examination. Blood alcohol 339, patient will be clinically sober at 13 hours. Lactic acidosis of 3.3. Patient was provided IV fluids. Patient will be admitted to medicine with psych consult with [facility] protocol initiated. I spoke with Dr. Norman who accepts admission for acute alcohol intoxication with psych consult however I was informed that patient left AGAINST MEDICAL ADVICE from the waiting room prior to admission orders being placed. Case was discussed with ED attending Dr. Samaniego. Undiagnosed new problem with uncertain prognosis? @ -No Drug Therapy requiring intensive monitoring for toxicity (Heparin, Nitro, Insulin, Cardizem)? @ -No Were any procedures done? @ -No Diagnosis/symptom? @ -Suicidal ideation, alcohol intoxication Acute, or Chronic, or Acute on Chronic? @ -Acute Uncomplicated (without systemic symptoms) or Complicated (systemic symptoms)? @ -Complicated Side effects of treatment? @ -No Exacerbation, Progression, or Severe Exacerbation? @ -No Poses a threat to life or bodily function? How? (Chest pain, [place], [place], pneumonia, PE, COPD, DKA, ARF, appy, cholecystitis, CVA, Diverticulitis, Homicidal, Suicidal, threat to staff... and all critical care pts) @ -Yes - Lab Data Result diagrams: 09/16/24 14:52 09/16/24 14:52 Lab Results 09/16/24 09/16/24 09/16/24 Range/Units 14:52 14:52 14:52 WBC 7.1 (3.8-10.6) k/uL RBC 6.68 H (4.30-5.90) m/uL Hgb 17.7 H (13.0-17.5) gm/dL Hct 55.5 H (39.0-53.0) % MCV 83.2 (80.0-100.0) fL MCH 26.5 (25.0-35.0) pg MCHC 31.8 (31.0-37.0) g/dL RDW 13.8 (11.5-15.5) % Plt Count 301 (150-450) k/uL MPV 7.1 Neutrophils % 63 % Lymphocytes % 29 % Monocytes % 4 % Eosinophils % 2 % Basophils % 1 % Neutrophils # 4.5 (1.3-7.7) k/uL Lymphocytes # 2.0 (1.0-4.8) k/uL Monocytes # 0.3 (0-1.0) k/uL Eosinophils # 0.1 (0-0.7) k/uL Basophils # 0.1 (0-0.2) k/uL Manual Slide Review Performed Sodium 140 (137-145) mmol/L Potassium 4.4 (3.5-5.1) mmol/L Chloride 98 (98-107) mmol/L Carbon Dioxide 27 (22-30) mmol/L Anion Gap 15 mmol/L BUN 13 (9-20) mg/dL Creatinine 0.98 (0.66-1.25) mg/dL Est GFR (CKD-EPI)AfAm >90 (>60 ml/min/1.73 sqM) Est GFR (CKD-EPI)NonAf 88 (>60 ml/min/1.73 sqM) Glucose 97 (74-99) mg/dL Plasma Lactic Acid Humberto 3.3 H* (0.7-2.0) mmol/L Calcium 9.3 (8.4-10.2) mg/dL Magnesium 2.0 (1.6-2.3) mg/dL Total Bilirubin 1.1 (0.2-1.3) mg/dL AST 94 H (17-59) U/L ALT 89 H (4-49) U/L Alkaline Phosphatase 137 H (38-126) U/L Total Protein 7.5 (6.3-8.2) g/dL Albumin 5.0 (3.5-5.0) g/dL Serum Alcohol 339 H* mg/dL Disposition Clinical Impression: Acute alcohol intoxication Disposition: LEFT AGAINST MEDICAL ADVICE Condition: Undetermined Referrals: Irving Stoner DO [Primary Care Provider] - 1-2 days Time of Disposition: 16:14
[2024-09-16 14:51] VITALS: BP 157/97; PULSE 83; RESP 18; TEMP 97.4
[2024-09-16] MEDS: SODIUM CHLORIDE 0.9% 1,000 ML IV STA (14:53)
[2024-09-16 15:17] LABS: ALT 89 U/L (4-49); AST 94 U/L (17-59); African American GFR (CKD) >90 (>60 ml/min/1.73 sqM); Alkaline Phosphatase 137 U/L (38-126); Anion Gap 15 mmol/L; Blood Urea Nitrogen 13 mg/dL (9-20); Calcium 9.3 mg/dL (8.4-10.2); Carbon Dioxide 27 mmol/L (22-30); Chloride 98 mmol/L (98-107); Glucose 97 mg/dL (74-99); Non-African American GFR(CKD) 88 (>60 ml/min/1.73 sqM); Potassium 4.4 mmol/L (3.5-5.1); Sodium 140 mmol/L (137-145); Total Bilirubin 1.1 mg/dL (0.2-1.3); Total Protein 7.5 g/dL (6.3-8.2)
[2024-09-16 15:24] LABS: Basophils # (A) 0.1 k/uL (0-0.2); Basophils % (A) 1 %; Eosinophils # (A) 0.1 k/uL (0-0.7); Eosinophils % (A) 2 %; HGB 17.7 gm/dL (13.0-17.5); Lymphocytes % (A) 29 %; MCH 26.5 pg (25.0-35.0); MCHC 31.8 g/dL (31.0-37.0); MCV 83.2 fL (80.0-100.0); Mean Platelet Volume 7.1; Monocytes # (A) 0.3 k/uL (0-1.0); Monocytes % (A) 4 %; Neutrophils # (A) 4.5 k/uL (1.3-7.7); Neutrophils % (A) 63 %; Platelet Count 301 k/uL (150-450); RBC 6.68 m/uL (4.30-5.90); RDW 13.8 % (11.5-15.5); WBC 7.1 k/uL (3.8-10.6)
[2024-09-16 15:26] LABS: HCT 55.5 % (39.0-53.0)
[2024-09-16 15:40] LABS: Alcohol 339 mg/dL
== END 2024-09-16 16:09 | disposition left against medical advice (07) ==
LOC: EC 12:20
DX: R45.851 Suicidal ideations (principal); F10.129 Alcohol abuse with intoxication, unspecified; F17.200 Nicotine dependence, unspecified, uncomplicated; Z53.29 Procedure and treatment not carried out because of patient's decision for other reasons
CPT/HCPCS: 36415; 80053; 80320; 83605; 83735; 85025; 96360; 99284

== ENCOUNTER 2024-09-27 12:17 | Observation (INO) | payer OTHER ==
[2024-09-27] MEDS ORDERED: LORazepam 2 MG/ML INJ IV PRN ×3 (12:36)
[2024-09-27] MEDS: LORazepam 2 MG/ML INJ IV STA (12:53)
[2024-09-27] MEDS: SODIUM CHLORIDE 0.9% 1,000 ML IV ONE (12:54)
[2024-09-27 13:10] LABS: Basophils # (A) 0.1 k/uL (0-0.2); Basophils % (A) 1 %; Eosinophils # (A) 0.2 k/uL (0-0.7); Eosinophils % (A) 3 %; HCT 48.3 % (39.0-53.0); HGB 15.6 gm/dL (13.0-17.5); Lymphocytes # (A) 2.3 k/uL (1.0-4.8); Lymphocytes % (A) 28 %; MCHC 32.4 g/dL (31.0-37.0); MCV 83.3 fL (80.0-100.0); Mean Platelet Volume 6.6; Monocytes # (A) 0.5 k/uL (0-1.0); Monocytes % (A) 6 %; Neutrophils # (A) 4.8 k/uL (1.3-7.7); Neutrophils % (A) 61 %; Platelet Count 298 k/uL (150-450); RDW 13.5 % (11.5-15.5)
[2024-09-27] MEDS: NICOTINE 21MG/24HR PATCH TRANSDERM STA (13:28)
[2024-09-27 13:35] LABS: ALT 65 U/L (4-49); AST 27 U/L (17-59); African American GFR (CKD) 89 (>60 ml/min/1.73 sqM); Albumin 4.3 g/dL (3.5-5.0); Alkaline Phosphatase 118 U/L (38-126); Anion Gap 11 mmol/L; Blood Urea Nitrogen 17 mg/dL (9-20); Calcium 8.6 mg/dL (8.4-10.2); Carbon Dioxide 24 mmol/L (22-30); Chloride 105 mmol/L (98-107); Glucose 86 mg/dL (74-99); Non-African American GFR(CKD) 77 (>60 ml/min/1.73 sqM); Potassium 4.3 mmol/L (3.5-5.1); Sodium 140 mmol/L (137-145); Total Bilirubin 0.5 mg/dL (0.2-1.3); Total Protein 6.5 g/dL (6.3-8.2)
[2024-09-27 13:45] LABS: Appearance,Urine Clear (Clear); Bilirubin,Urine Negative (Negative); Blood,Urine Negative (Negative); Color,Urine Colorless; Glucose,Urine (UA) Negative (Negative); Ketones,Urine Negative (Negative); Leukocyte Esterase,Urine Negative (Negative); Nitrite,Urine Negative (Negative); PH, Urine 5.5 (5.0-8.0); Protein,Urine Negative (Negative); Specific Gravity,Urine 1.002 (1.001-1.035); Urobilinogen,Urine <2.0 mg/dL (<2.0)
[2024-09-27 13:53] LABS: Alcohol 337 mg/dL
[2024-09-27 14:11] LABS: Amphetamine Screen,Urine Not Detected (NotDetected); Barbiturate Screen,Urine Not Detected (NotDetected); Benzodiazepines Screen,Urine Not Detected (NotDetected); Cocaine Screen,Urine Not Detected (NotDetected); Methadone Screen, Urine Not Detected (NotDetected); Opiate Screen,Urine Not Detected (NotDetected); Oxycodone Screen, Urine Not Detected (NotDetected); Phencyclidine Screen,Urine Not Detected (NotDetected); Tricyclic Antidepressant,Urine Not Detected (NotDetected); Urn Cannabinoid Scrn Not Detected (NotDetected)
--- NOTE | 2024-09-27 14:15 | ED ---
General Adult HPI - General Chief complaint: Psychiatric Symptoms Stated complaint: ETOH Time Seen by Provider: 09/27/24 12:34 Source: patient, EMS, RN notes reviewed, old records reviewed Mode of arrival: EMS Limitations: altered mental status - History of Present Illness Initial comments: Patient is a 54-year-old male who presents emergency department complaining of alcohol intoxication, making statements that he has been thinking about self- harm. Denies any specific plans of self-harm. Denies any homicidal ideations or attempts or plans. Denies any hallucinations. He is upset currently. Presents for further evaluation. Denies chest pain, shortness of breath, abdominal pain, nausea, vomiting. - Related Data Home Medications Medication Instructions Recorded Confirmed No Known Home Medications 09/27/24 09/27/24 Allergies Allergy/AdvReac Type Severity Reaction Status Date / Time No Known Allergies Allergy Verified 09/27/24 15:21 Review of Systems ROS Statement: Those systems with pertinent positive or pertinent negative responses have been documented in the HPI. Review of Systems: CONST: Denies fever EYES: Denies blurry vision ENT: Denies nasal congestion C/V: Denies Chest pain RESP: Denies shortness of breath GI: Denies abdominal pain : Denies dysuria SKIN: Denies rash. MSK: Denies joint pain. NEURO: Denies headache ROS Other: All systems not noted in ROS Statement are negative. Past Medical History Past Medical History: COPD History of Any Multi-Drug Resistant Organisms: None Reported Past Surgical History: No Surgical Hx Reported Past Psychological History: Anxiety, Depression Smoking Status: Current every day smoker Past Alcohol Use History: Daily Past Drug Use History: None Reported General Exam - General Exam Comments Initial Comments: General: Appears upset, acutely intoxicated with alcohol. No evidence of alcohol withdrawals. HEAD: Normal with no signs of head trauma. EYES: Pupils are 3 mm and equal bilaterally. ENT: Hearing grossly intact, normal oropharynx. RESPIRATORY: Clear breath sounds bilaterally. No wheezes, rales, or rhonchi. C/V: Regular rate and rhythm. S1 and S2 auscultated, peripheral pulses 2+ and intact throughout ABD: Abd is soft, nontender, nondistended EXT: Normal range of motion, no obvious deformity SKIN: No rashes or lesions observed on exposed skin. NEURO: Alert and oriented x 4. Limitations: altered mental status Course Vital Signs 09/27/24 09/27/24 12:38 15:36 Temperature 98.1 F Pulse Rate 88 72 Respiratory 22 18 Rate Blood Pressure 148/80 90/59 O2 Sat by Pulse 96 96 Oximetry Medical Decision Making - Medical Decision Making Was pt. sent in by a medical professional or institution (, [facility], ANDROID SOFTWARE ENGINEER, urgent care, hospital, or long term...) When possible be specific @ -No Did you speak to anyone other than the patient for history (EMS, parent, family, police, friend...)? What history was obtained from this source @ -No Did you review nursing and triage notes (agree or disagree)? Why? @ -I reviewed and agree with nursing and triage notes Were old charts reviewed (outside hosp., previous admission, EMS record, old EKG, old radiological studies, urgent care reports/EKG's, long term records)? Report findings @ -No old charts were reviewed Differential Diagnosis (chest pain, altered mental status, abdominal pain women, abdominal pain men, vaginal bleeding, weakness, fever, dyspnea, syncope, headache, dizziness, GI bleed, back pain, seizure, CVA, palpatations, mental health, musculoskeletal)? @ -Alcohol intoxication, suicidal ideations, alcohol withdrawals. This list is not all inclusive EKG interpreted by me (3pts min.). @ -As above X-rays interpreted by me (1pt min.). @ -None done CT interpreted by me (1pt min.). @ -None done U/S interpreted by me (1pt. min.). @ -None done What testing was considered but not performed or refused? (CT, X-rays, U/S, labs)? Why? @ -None What meds were considered but not given or refused? Why? @ -None Did you discuss the management of the patient with other professionals (p rofessionals i.e. , CHLOE, ANDROID SOFTWARE ENGINEER, lab, RT, psych nurse, social insurance analyst, chief learning officer, teacher, major gifts officer, supervisor case loading)? Give summary @ -Discussed with the admitting provider, city call JOHNNIE barksdale of [facility] who accepted the admission. Was smoking cessation discussed for >3mins.? @ -No Was critical care preformed (if so, how long)? @ -No Were there social determinants of health that impacted care today? How? (Homelessness, low income, unemployed, alcoholism, drug addiction, transportation, low edu. Level, literacy, decrease access to med. care, [facility], rehab)? @ -No Was there de-escalation of care discussed even if they declined (Discuss DNR or withdrawal of care, Hospice)? DNR status @ -No What co-morbidities impacted this encounter? (DM, HTN, Smoking, COPD, CAD, Cancer, CVA, ARF, Chemo, Hep., AIDS, mental health diagnosis, sleep apnea, morbid obesity)? @ -Alcohol abuse Was patient admitted / discharged? Hospital course, mention meds given and route, prescriptions, significant lab abnormalities, going to OR and other pertinent info. @ -Patient presents and toxic with alcohol with suicidal ideations and statements. Patient placed on CIWA protocol and we will obtain basic labs. Goal is to admit the patient as he does appear overly intoxicated to keep in the ER as a psych evaluation here. Patient did receive a dose of Ativan. We will monitor for withdrawal symptoms which she currently does not have. EKG showed no signs of acute ischemia. Serum alcohol level is 337. Labs are within acceptable limits. Patient is resting comfortably at this time. Will continue with CIWA protocol. Vitals within acceptable limits. Patient will be admitted with psychiatry consult. I spoke with [facility] JOHNNIE Barksdale who is city call who accepted the admission. Undiagnosed new problem with uncertain prognosis? @ -No Drug Therapy requiring intensive monitoring for toxicity (Heparin, Nitro, Ins ulin, Cardizem)? @ -No Were any procedures done? @ -No Diagnosis/symptom? @ -Alcohol intoxication, suicidal statements Acute, or Chronic, or Acute on Chronic? @ -Acute Uncomplicated (without systemic symptoms) or Complicated (systemic symptoms)? @ -Complicated Side effects of treatment? @ -No Exacerbation, Progression, or Severe Exacerbation? @ -No Poses a threat to life or bodily function? How? (Chest pain, USA, PA, pneumonia, PE, COPD, DKA, ARF, appy, cholecystitis, CVA, Diverticulitis, Homicidal, Suicidal, threat to staff... and all critical care pts) @ -Yes - Lab Data Result diagrams: 09/27/24 12:51 09/27/24 12:51 Lab Results 03/14/25 03/14/25 03/14/25 Range/Units 12:51 12:51 13:30 WBC 8.0 (3.8-10.6) k/uL RBC 5.80 (4.30-5.90) m/uL Hgb 15.6 (13.0-17.5) gm/dL Hct 48.3 (39.0-53.0) % MCV 83.3 (80.0-100.0) fL MCH 27.0 (25.0-35.0) pg MCHC 32.4 (31.0-37.0) g/dL RDW 13.5 (11.5-15.5) % Plt Count 298 (150-450) k/uL MPV 6.6 Neutrophils % 61 % Lymphocytes % 28 % Monocytes % 6 % Eosinophils % 3 % Basophils % 1 % Neutrophils # 4.8 (1.3-7.7) k/uL Lymphocytes # 2.3 (1.0-4.8) k/uL Monocytes # 0.5 (0-1.0) k/uL Eosinophils # 0.2 (0-0.7) k/uL Basophils # 0.1 (0-0.2) k/uL Sodium 140 (137-145) mmol/L Potassium 4.3 (3.5-5.1) mmol/L Chloride 105 (98-107) mmol/L Carbon Dioxide 24 (22-30) mmol/L Anion Gap 11 mmol/L BUN 17 (9-20) mg/dL Creatinine 1.09 (0.66-1.25) mg/dL Est GFR (CKD-EPI)AfAm 89 (>60 ml/min/1.73 sqM) Est GFR (CKD-EPI)NonAf 77 (>60 ml/min/1.73 sqM) Glucose 86 (74-99) mg/dL Calcium 8.6 (8.4-10.2) mg/dL Total Bilirubin 0.5 (0.2-1.3) mg/dL AST 27 (17-59) U/L ALT 65 H (4-49) U/L Alkaline Phosphatase 118 (38-126) U/L Total Protein 6.5 (6.3-8.2) g/dL Albumin 4.3 (3.5-5.0) g/dL Urine Color Colorless Urine Appearance Clear (Clear) Urine pH 5.5 (5.0-8.0) Ur Specific [place] 1.002 (1.001-1.035) Urine Protein Negative (Negative) Urine Glucose (UA) Negative (Negative) Urine Ketones Negative (Negative) Urine Blood Negative (Negative) Urine Nitrite Negative (Negative) Urine Bilirubin Negative (Negative) Urine Urobilinogen <2.0 (<2.0) mg/dL Ur Leukocyte Esterase Negative (Negative) Urine Opiates Screen (NotDetected) Ur Oxycodone Screen (NotDetected) Urine Methadone Screen (NotDetected) Ur Barbiturates Screen (NotDetected) U Tricyclic Antidepress (NotDetected) Ur Phencyclidine Scrn (NotDetected) Ur Amphetamines Screen (NotDetected) U Methamphetamines Scrn (NotDetected) U Benzodiazepines Scrn (NotDetected) Urine Cocaine Screen (NotDetected) U Marijuana (THC) Screen (NotDetected) Serum Alcohol 337 H* mg/dL 09/27/24 Range/Units 13:30 WBC (3.8-10.6) k/uL RBC (4.30-5.90) m/uL Hgb (13.0-17.5) gm/dL Hct (39.0-53.0) % MCV (80.0-100.0) fL MCH (25.0-35.0) pg MCHC (31.0-37.0) g/dL RDW (11.5-15.5) % Plt Count (150-450) k/uL MPV Neutrophils % % Lymphocytes % % Monocytes % % Eosinophils % % Basophils % % Neutrophils # (1.3-7.7) k/uL Lymphocytes # (1.0-4.8) k/uL Monocytes # (0-1.0) k/uL Eosinophils # (0-0.7) k/uL Basophils # (0-0.2) k/uL Sodium (137-145) mmol/L Potassium (3.5-5.1) mmol/L Chloride (98-107) mmol/L Carbon Dioxide (22-30) mmol/L Anion Gap mmol/L BUN (9-20) mg/dL Creatinine (0.66-1.25) mg/dL Est GFR (CKD-EPI)AfAm (>60 ml/min/1.73 sqM) Est GFR (CKD-EPI)NonAf (>60 ml/min/1.73 sqM) Glucose (74-99) mg/dL Calcium (8.4-10.2) mg/dL Total Bilirubin (0.2-1.3) mg/dL AST (17-59) U/L ALT (4-49) U/L Alkaline Phosphatase (38-126) U/L Total Protein (6.3-8.2) g/dL Albumin (3.5-5.0) g/dL Urine Color Urine Appearance (Clear) Urine pH (5.0-8.0) Ur Specific [place] (1.001-1.035) Urine Protein (Negative) Urine Glucose (UA) (Negative) Urine Ketones (Negative) Urine Blood (Negative) Urine Nitrite (Negative) Urine Bilirubin (Negative) Urine Urobilinogen (<2.0) mg/dL Ur Leukocyte Esterase (Negative) Urine Opiates Screen Not Detected (NotDetected) Ur Oxycodone Screen Not Detected (NotDetected) Urine Methadone Screen Not Detected (NotDetected) Ur Barbiturates Screen Not Detected (NotDetected) U Tricyclic Antidepress Not Detected (NotDetected) Ur Phencyclidine Scrn Not Detected (NotDetected) Ur Amphetamines Screen Not Detected (NotDetected) U Methamphetamines Scrn Not Detected (NotDetected) U Benzodiazepines Scrn Not Detected (NotDetected) Urine Cocaine Screen Not Detected (NotDetected) U Marijuana (THC) Screen Not Detected (NotDetected) Serum Alcohol mg/dL - EKG Data -: EKG Interpreted by Me EKG Comments: 12-lead Electrocardiogram Interpretation Note EKG was reviewed and interpreted by myself. 12-lead ECG performed at 1322 is interpreted by me as revealing normal sinus rhythm at a rate of 60 beats per minute. Indeterminate axis. Incomplete bundle branch block. WV interval is 202 ms, QRS duration is 112 ms, QTc is 458 ms.. There were no ST or T wave abnormalities to suggest myocardial ischemia or injury. R wave progression across the precordium was satisfactory. By my interpretation this EKG is non-diagnostic for acute ischemia. Disposition Clinical Impression: Alcohol intoxication, Suicidal ideations Disposition: ADMITTED IP TO THIS [facility] Condition: Stable Time of Disposition: 14:15
[2024-09-27] MEDS: SODIUM CHLORIDE 0.9% 1,000 ML IV STA (14:54)
[2024-09-27] MEDS ORDERED: NALOXONE 0.4 MG/ML 1 ML VIAL IV PRN (15:35)
[2024-09-27] MEDS: HEPARIN SODIUM,PORCINE 5,000 UNIT/ML 1 ML VIAL SQ SCH (16:16)
[2024-09-27] MEDS: ZIPRASIDONE 20 MG VIAL IM STA (16:55)
[2024-09-28] MEDS: PANTOPRAZOLE 40 MG TABLET PO SCH (08:12)
[2024-09-28 08:15] VITALS: RESP 20
[2024-09-28 09:24] LABS: Basophils # (A) 0.09 X 10*3/uL (0.00-0.10); Basophils % (A) 1.5 %; Eosinophils # (A) 0.21 X 10*3/uL (0.04-0.35); Eosinophils % (A) 3.5 %; HCT 45.6 % (39.6-50.0); HGB 14.7 g/dL (13.0-17.0); Lymphocytes # (A) 2.06 X 10*3/uL (0.90-5.00); Lymphocytes % (A) 34.6 %; MCH 26.5 pg (27.0-32.0); MCHC 32.2 g/dL (32.0-37.0); MCV 82.3 FL (80.0-97.0); Monocytes # (A) 0.53 X 10*3/uL (0.20-1.00); Monocytes % (A) 8.9 %; NRBC Per 100 WBC 0 X 10*3/uL (0.00-0.01); Neutrophils # (A) 3.04 X 10*3/uL (1.80-7.70); Neutrophils % (A) 51.2 %; Platelet Count 294 X 10*3/uL (140-440); RBC 5.54 X 10*6/uL (4.40-5.60); RDW 13.7 % (11.5-14.5); WBC 5.95 X 10*3/uL (4.50-10.00)
[2024-09-28 09:29] LABS: Blood Urea Nitrogen 16.5 mg/dL (9.0-27.0); Carbon Dioxide 19.7 mmol/L (21.6-31.8); Chloride 102 mmol/L (96-109); Glucose 55 mg/dL (70-110); Potassium 4.5 mmol/L (3.5-5.5); Sodium 138 mmol/L (135-145)
[2024-09-28 09:30] LABS: ALT 53 U/L (10-49); AST 23 U/L (14-35); Albumin 4.1 g/dL (3.8-4.9); Albumin/Globulin Ratio 2.05 Ratio (1.60-3.17); Alkaline Phosphatase 115 U/L (41-126); Calcium 9.1 mg/dL (8.7-10.3); Total Bilirubin 0.6 mg/dL (0.3-1.2); Total Protein 6.1 g/dL (6.2-8.2)
[2024-09-28] MEDS ORDERED: IPRATROPIUM-ALBUTEROL 3 ML NEB INHALATION PRN (10:45)
--- NOTE | 2024-09-28 10:52 | P.HPIM ---
History of Present Illness 54-year-old male was brought in by ground for alcohol intoxication apparently when he came to ER he says he said some stupid statements t that he is going to harm himself. Patient does not have any suicidal ideations at this time he did not mean to commit suicide he says. Patient drinks hard liquor most days of the week but not on daily basis patient wanted to go home. Patient is presently not having withdrawals patient is sober at this time. Patient also smokes does have wheezing on exam has a history of COPD does not use any inhalers at home patient is complaining of cough with clear sputum production. I do not believe his will have withdrawals reports alcohol patient's MCV is within normal limits. REVIEW OF SYSTEMS: All other systems are negative except those mentioned in the HPI PHYSICAL EXAMINATION: GENERAL: The patient is alert and oriented x3, not in any acute distress. Well developed, well nourished. HEENT: Pupils are round and equally reacting to light. EOMI. No scleral icterus. No conjunctival pallor. Normocephalic, atraumatic. No pharyngeal erythema. No thyromegaly. CARDIOVASCULAR: S1 and S2 present. No murmurs, rubs, or gallops. PULMONARY: Chest is clear to auscultation, no wheezing or crackles. ABDOMEN: Soft, nontender, nondistended, normoactive bowel sounds. No palpable organomegaly. MUSCULOSKELETAL: No joint swelling or deformity. EXTREMITIES: No cyanosis, clubbing, or pedal edema. NEUROLOGICAL: Gross neurological examination did not reveal any focal deficits. SKIN: No rashes. Assessment and plan -Alcohol intoxication patient is open at this time patient is medically stable from that perspective to be discharged. I do not expect to have withdrawals as patient does not drink on daily basis and his MCV is within normal limits -Possible suicidal ideations although patient denied any such ideations to me will await psychiatric evaluation actively psychiatry patient is discharged today -Mild alcoholic hepatitis -COPD with acute exacerbation patient was given 1 dose of IV steroid after which patient will be discharged on albuterol and inhaled steroid. -Nicotine cessation and alcohol cessation counseling was provided Patient will discharge if cleared by psychiatry Past Medical History Past Medical History: COPD History of Any Multi-Drug Resistant Organisms: None Reported Past Surgical History: No Surgical Hx Reported Past Psychological History: Anxiety, Depression Smoking Status: Current every day smoker Past Alcohol Use History: Daily Past Drug Use History: None Reported Medications and Allergies Home Medications Medication Instructions Recorded Confirmed Type Albuterol Inhaler [Ventolin Hfa 1 - 2 puff INHALATION Q6HR PRN #1 09/28/24 Rx Inhaler] each Fluticasone Propion/Salmeterol 1 inhalation PO BID #1 each 09/28/24 Rx [Advair 250-50 Diskus] Allergies Allergy/AdvReac Type Severity Reaction Status Date / Time No Known Allergies Allergy Verified 09/27/24 15:21 Physical Exam Vitals: Vital Signs Temp Pulse Resp BP Pulse Ox 09/28/24 08:13 97.5 F L 89 20 176/97 95 09/28/24 01:30 98.0 F 77 18 140/90 100 09/27/24 20:49 81 18 112/64 97 09/27/24 15:36 72 18 90/59 96 09/27/24 12:38 98.1 F 88 22 148/80 96 Results CBC & Chem 7: 09/28/24 03:48 09/28/24 03:48 Labs: Abnormal Lab Results - Last 24 Hours (Table) 09/27/24 09/28/24 09/28/24 Range/Units 12:51 03:48 03:48 MCH 26.5 L (27.0-32.0) pg MPV 9.0 L (9.5-12.2) FL Carbon Dioxide 19.7 L (21.6-31.8) mmol/L Anion Gap 16.30 H (4.00-12.00) mmol/L Glucose 55 L (70-110) mg/dL ALT 65 H 53 H (4-49) U/L Total Protein 6.1 L (6.2-8.2) g/dL Serum Alcohol 337 H* mg/dL
[2024-09-28 11:02] LABS: Glucose,Whole Blood 66 mg/dL (70-110)
[2024-09-28] MEDS: FAMOTIDINE 20 MG TAB PO SCH (11:32)
[2024-09-28] MEDS: methylPREDNISolone SOD SUCCI 40 MG/ML 1 ML VIAL IV STA (11:33)
[2024-09-28] MEDS: IPRATROPIUM-ALBUTEROL 3 ML NEB INHALATION SCH (11:54)
[2024-09-28 12:54] LABS: Glucose,Whole Blood 153 mg/dL (70-110)
[2024-09-28 13:16] VITALS: BP 176/98; PULSE 102; TEMP 98.3
--- NOTE | 2024-09-28 13:56 | P.CN ---
Psychiatric Consult - . Consult:: IDENTIFYING DATA: This patient is a 54 year old man with a history of alcohol use disorder who presented to the ER acutely intoxicated. REASON FOR REFERRAL: Psychiatry was consulted for evaluation of suicidal ideation HISTORY OF PRESENT ILLNESS: Mr. Ammon Benitez is a 54 year old male with a history of alcohol use disorder who presented to the ER on 09/27/24. His serum alcohol level was 337. Per review of nursing notes, "Pt presenting via EMS for ETOH. Per EMS they were called by the public due to pt laying in the street. When EMS arrived pt appeared intoxicated and they found an almost empty 5th of Lv Beam in his pocket. Pt reported to drinking ETOH today, very emotional on arrival. Making SI comments and yelling about his not answering her phone. Pt denies HI. PT was seen her in the ER on 09/16/24 for SI and ETOH and left AMA." A psychiatry consult was requested for evaluation in the context of patient's statements. Mr. Benitez was seen at the bedside today and was aware of the reason for psychiatric evaluation. He provided verbal consent for the visit. He explained that he "said stupid things..." he went on to say "I say it when I'm mad." He doesn't remember making the statements yesterday, and he doesn't recall any source of anger or conflict. He denies experiencing marital discord. He explicitly denies suicidal ideation, identified method, intent, or plan. He has a history of presenting to the ER at this hospital in March 2024 under similar circumstances, again on 09/16/24. He reports drinking about a pint per day when he does drink. He notes that this pattern of alcohol use has been ongoing for at least 5 years. He denies daily alcohol use, but once he starts drinking, usually every other day, he finds it hard to stop. He denies any use of other substances; no cocaine, heroin, LSD, PCP, or methamphetamine. He does smoke one pack per day of cigarettes. He previously attended the AA meeting on but has not been in about a month. He does not have a Sponsor. He denies having been in outpatient substance treatment (or psychiatric treatment). He has not consistently taken any medication for psychiatric reasons or to help address his drinking. Regarding other symptoms, he describes his mood as "good." He denies difficulty with sadness or persistent depression. He has been sleeping and eating without issue. He denies anxiety or excessive worry. He also denies any history of auditory or visual hallucinations; no paranoia or excessive fear. He denies any history of a prolonged decrease in need for sleep associated with an increase in goal-directed activity. He denies homicidal ideation, intent, or plan. PAST PSYCHIATRIC HISTORY: Patient denies any history of psychiatric diagnoses. Record review suggests a history of adjustment disorder, alcohol use disorder, and nicotine dependence. Patient denies being on any psychiatric medications. Previously prescribed buspirone, trazodone, and naltrexone, per Dr. Kincaid' 03/2024 note, but patient did not take anything consistently. Patient denies any previous psychiatric hospitalizations. Patient denies any psychiatric outpatient follow-up. Patient denies any history of suicide attempts in the past. PAST MEDICAL HISTORY: COPD ALLERGIES: as per EMR. CHEMICAL DEPENDENCY HISTORY: as per HPI. FAMILY PSYCHIATRIC/SUBSTANCE USE HISTORY: Dad had a history of alcohol abuse. No known family history of suicide. SOCIAL HISTORY: Patient was born in [place] and raised in [place]. Completed school through 10th grade. Has had various jobs through the years. Currently unemployed. Last employed at [employer] 2 months ago; was let go due to poor work attendance. He attributes this to feeling unwell and not having transportation. 14 years. Resides with his , mother, sister, and [id number]. Has an adult daughter whom he is estranged from. Denies any firearms in the home "they're not allowed." He has a history of involvement with the legal system due to disorderly conduct. MENTAL STATUS EXAM: General Appearance: Patient appears to be stated age is alert, pleasant, and cooperative. Patient appears to have fair hygiene and grooming wearing hospital gown with fair eye contact. Behavior: Patient is calmly sitting up in bed without any agitated behavior. Speech: Patient's speech is fluent and nonpressured. Mood/Affect: Patient reports their mood is "good", affect is congruent Suicidality/Homicidality: Patient denies having any suicidal or homicidal ideation intent or plan. Perceptions: Patient denies any visual hallucinations and denies any auditory hallucinations Though content/process: There is no evidence of any delusional thought content and thought process is linear and goal-directed. Memory and concentration: AOX3, grossly intact for the purposes of this session. Able to recall recent and remote events accurately. Judgment and insight: fair IMPRESSIONS: Ammon Benitez is a 54 man with history of alcohol use disorder who presented to the emergency department with acute alcohol intoxication. During his initial evaluation he made suicidal statements and thus a psychiatry consult was requested once he reached clinical sobriety. He reports not remembering the things that he said and denied current or recent suicidal ideation, intent, or plan. He denies any recent issues with persistently depressed mood, anxiety, or any history of joanna or psychotic symptoms. He had been attending an AA meeting which he found helpful in supporting him with his drinking, but he has not attended in the last month. We discussed options for getting treatment for substance use including potential for medication and therapy. He was provided a list of resources in the community that he can access in order to get the services he needs. Additionally he was educated on a mental health crisis line and encouraged to seek emergency care or reach out to the 9 8 8 hotline in the event he experiences suicidal ideation in the future. He denied homicidal ideation, intent, or plan. PLAN: -At this time patient DOES NOT meet criteria for inpatient psychiatric admission. -Can discontinue 1:1 sitter at this time as patient is not currently an imminent threat to themselves -general farmworker to provide patient with outpatient mental health/psychiatry resources for appropriate follow up upon discharge -Streetcar Starter spoke with patient about substance abuse and the harmful effects on medical and mental health, patient verbally understood and agreed. -general farmworker to provide patient substance use treatment resources. -Communicated plan to patient's nurse and medical team. -Psychiatry will sign off at this time -Please contact with any questions.
== END 2024-09-28 13:42 | disposition home or self-care (01) ==
LOC: EC 12:17 → 4SSUR 15:36
PROVIDERS: ADMIT Internal Medicine; ATTEND Internal Medicine
DX: F10.129 Alcohol abuse with intoxication, unspecified (principal); J44.1 Chronic obstructive pulmonary disease with (acute) exacerbation; K70.10 Alcoholic hepatitis without ascites; I45.4 Nonspecific intraventricular block; Y90.8 Blood alcohol level of 240 mg/100 ml or more; F17.210 Nicotine dependence, cigarettes, uncomplicated; Z71.41 Alcohol abuse counseling and surveillance of alcoholic; Z71.6 Tobacco abuse counseling
CPT/HCPCS: 82075; 96361 ×2; 96372; 96374; 96375; 99285; 36415; 94640; 93005; 80053 ×2; 85025 ×2; 81003; 80306; 80320; G0378 ×2; S4990; J2060; J1644; J2919

== ENCOUNTER 2024-10-17 22:42 | Emergency (ER) | payer SELFPAY ==
[2024-10-17 22:50] VITALS: BP 118/86; PULSE 70; RESP 18; TEMP 96.3
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
== END 2024-10-18 00:08 | disposition home or self-care (01) ==
LOC: EC 22:42
DX: F10.129 Alcohol abuse with intoxication, unspecified (principal); F17.200 Nicotine dependence, unspecified, uncomplicated; Z88.0 Allergy status to penicillin
CPT/HCPCS: 99285

== ENCOUNTER 2024-10-18 17:00 | Inpatient (IN) | payer OTHER ==
--- NOTE | 2024-10-18 17:21 | ED ---
General Adult HPI - General Chief complaint: Alcohol Stated complaint: ETOH Time Seen by Provider: 10/18/24 17:05 Source: patient, EMS, RN notes reviewed, old records reviewed Mode of arrival: EMS Limitations: altered mental status - History of Present Illness Initial comments: This is a 54-year-old male who presents to the emergency department intoxicated and because he stated he was suicidal. Patient states he went to blow his head off. Patient denies any drug use. Patient denies any physical complaints today. - Related Data Home Medications Medication Instructions Recorded Confirmed No Known Home Medications 10/18/24 10/18/24 Allergies Allergy/AdvReac Type Severity Reaction Status Date / Time Penicillins Allergy Rash/Hives Verified 10/18/24 19:31 Review of Systems ROS Statement: Those systems with pertinent positive or pertinent negative responses have been documented in the HPI. ROS Other: All systems not noted in ROS Statement are negative. Past Medical History Past Medical History: COPD History of Any Multi-Drug Resistant Organisms: None Reported Past Surgical History: No Surgical Hx Reported Past Psychological History: Anxiety, Depression Smoking Status: Current every day smoker Past Alcohol Use History: Abuse, Daily Past Drug Use History: None Reported General Exam - General Exam Comments Initial Comments: GENERAL: Patient is well-developed and well-nourished. Patient is nontoxic and well- hydrated and is in no acute distress. Patient appears highly intoxicated ENT: Neck is soft and supple. No significant lymphadenopathy is noted. Oropharynx is clear. Moist mucous membranes. Neck has full range of motion without eliciting any pain. EYES: The sclera were anicteric and conjunctiva were pink and moist. Extraocular movements were intact and pupils were equal round and reactive to light. Eyelids were unremarkable. PULMONARY: Unlabored respirations. Good breath sounds bilaterally. No audible rales rhonc hi or wheezing was noted. CARDIOVASCULAR: There is a regular rate and rhythm without any murmurs gallops or rubs. ABDOMEN: Soft and nontender with normal bowel sounds. SKIN: Skin is clear with no lesions or rashes and otherwise unremarkable. NEUROLOGIC: Patient is alert and oriented x3. Cranial nerves II through XII are grossly intact. Motor and sensory are also intact. Normal speech, volume and content. Symmetrical smile. MUSCULOSKELETAL: Normal extremities with adequate strength and full range of motion. LYMPHATICS: No significant lymphadenopathy is noted PSYCHIATRIC: Patient does state he wants to kill himself Limitations: altered mental status Course Vital Signs 10/18/24 17:06 Pulse Rate 74 Respiratory 18 Rate Blood Pressure 132/93 O2 Sat by Pulse 92 L Oximetry Medical Decision Making - Medical Decision Making EKG is interpreted by myself. EKG shows sinus rhythm at 72 bpm CO was 202 QRS is 114 QT interval 399 QTc is 423. Patient's EKG shows no ST segment elevation or depression Was pt. sent in by a medical professional or institution (, [facility], EARLY CHILDHOOD EDUCATION WORKER, urgent care, hospital, or fdc...) When possible be specific @ -No Did you speak to anyone other than the patient for history (EMS, parent, family, police, friend...)? What history was obtained from this source @ -No Did you review nursing and triage notes (agree or disagree)? Why? @ -I reviewed and agree with nursing and triage notes Were old charts reviewed (outside hosp., previous admission, EMS record, old EKG, old radiological studies, urgent care reports/EKG's, fdc records)? Report findings @ -No old charts were reviewed Differential Diagnosis? @ -Differential Altered Mental Status: Hypoglycemia, DKA, hypercapnia, ETOH, overdose, CO poisoning, trauma, myxedema coma, HTN encephalopathy, infection, encephalitis, psychosis, intercranial hemorrhage, hepatic encephalopathy, meningitis, CVA, this is not meant to be an all-inclusive list Differential Mental Health Depression, anxiety, bipolar, psychosis, schizophrenia, borderline personality, situational depression, adjustment disorder, behavioral disorder, brain tumor, malingering, substance abuse, encephalopathy, medication reaction, dementia, hypothyroidism, degenerative neurologic disorder, lupus.... This is not meant to be all-inclusive list EKG interpreted by me (3pts min.). @ -As above X-rays interpreted by me (1pt min.). @ -None done CT interpreted by me (1pt min.). @ -None done U/S interpreted by me (1pt. min.). @ -None done What testing was considered but not performed or refused? (CT, X-rays, U/S, labs)? Why? @ -None What meds were considered but not given or refused? Why? @ -None Did you discuss the management of the patient with other professionals (roe santiago i.e. Dr., PA, EARLY CHILDHOOD EDUCATION WORKER, lab, RT, psych nurse, hospital social worker, tobacco stripping machine operator, teacher, armor officer, patient case manager)? Give summary @ -I spoke with sound physicians agreed to admit the patient admit the patient wrote admitting orders Was smoking cessation discussed for >3mins.? @ -No Was critical care preformed (if so, how long)? @ -No Were there social determinants of health that impacted care today? How? (Homelessness, low income, unemployed, alcoholism, drug addiction, transportation, low edu. Level, literacy, decrease access to med. care, [facility], rehab)? @ -No Was there de-escalation of care discussed even if they declined (Discuss DNR or withdrawal of care, Hospice)? DNR status @ -No What co-morbidities impacted this encounter? (DM, HTN, Smoking, COPD, CAD, Cancer, CVA, ARF, Chemo, Hep., AIDS, mental health diagnosis, sleep apnea, morbid obesity)? @ -None Was patient admitted / discharged? Hospital course, mention meds given and route, prescriptions, significant lab abnormalities, going to OR and other pertinent info. @ -Patient was noncooperative patient did rip out his IV. Patient was given 2 of Ativan. Patient also had a high lipase patient did not complain of tenderness however because of the high lipase I believe the patient has pancreatitis. Patient will be n.p.o. and placed on IV fluids. Patient will be admitted with a CIWA protocol in place and a consult to psych Undiagnosed new problem with uncertain prognosis? @ -No Drug Therapy requiring intensive monitoring for toxicity (Heparin, Nitro, Insulin, Cardizem)? @ -No Were any procedures done? @ -No Diagnosis/symptom? @ -Alcohol intoxication Acute, or Chronic, or Acute on Chronic? @ -Acute Uncomplicated (without systemic symptoms) or Complicated (systemic symptoms)? @ -Complicated Side effects of treatment? @ -No Exacerbation, Progression, or Severe Exacerbation? @ -No Poses a threat to life or bodily function? How? (Chest pain, [place], [place], pneumonia, PE, COPD, DKA, ARF, appy, cholecystitis, CVA, Diverticulitis, Homicidal, Suicidal, threat to staff... and all critical care pts) @ -No Diagnosis/symptom? @ -Suicidal ideations Acute, or Chronic, or Acute on Chronic? @ -Acute Uncomplicated (without systemic symptoms) or Complicated (systemic symptoms)? @ -Complicate Side effects of treatment? @ -None Exacerbation, Progression, or Severe Exacerbation] @ -No Poses a threat to life or bodily function? @ -Yes this can lead to Diagnosis/symptom? @ -Pancreatitis Acute, or Chronic, or Acute on Chronic? @ -Acute Uncomplicated (without systemic symptoms) or Complicated (systemic symptoms)? @ -Complicated Side effects of treatment? @ -None Exacerbation, Progression, or Severe Exacerbation] @ -No Poses a threat to life or bodily function? @ -No - Lab Data Result diagrams: 10/18/24 17:44 10/18/24 17:44 Lab Results 10/18/24 10/18/24 10/18/24 Range/Units 17:38 17:44 17:44 WBC 9.0 (3.8-10.6) k/uL RBC 6.32 H (4.30-5.90) m/uL Hgb 16.9 (13.0-17.5) gm/dL Hct 51.7 (39.0-53.0) % MCV 81.8 (80.0-100.0) fL MCH 26.7 (25.0-35.0) pg MCHC 32.6 (31.0-37.0) g/dL RDW 14.3 (11.5-15.5) % Plt Count 296 (150-450) k/uL MPV 6.4 Neutrophils % 47 % Lymphocytes % 41 % Monocytes % 5 % Eosinophils % 3 % Basophils % 2 % Neutrophils # 4.2 (1.3-7.7) k/uL Lymphocytes # 3.7 (1.0-4.8) k/uL Monocytes # 0.5 (0-1.0) k/uL Eosinophils # 0.3 (0-0.7) k/uL Basophils # 0.2 (0-0.2) k/uL Sodium 142 (137-145) mmol/L Potassium 4.7 (3.5-5.1) mmol/L Chloride 104 (98-107) mmol/L Carbon Dioxide 24 (22-30) mmol/L Anion Gap 14 mmol/L BUN 17 (9-20) mg/dL Creatinine 1.06 (0.66-1.25) mg/dL Est GFR (CKD-EPI)AfAm >90 (>60 ml/min/1.73 sqM) Est GFR (CKD-EPI)NonAf 80 (>60 ml/min/1.73 sqM) Glucose 92 (74-99) mg/dL Calcium 9.2 (8.4-10.2) mg/dL Magnesium 2.5 H (1.6-2.3) mg/dL Total Bilirubin 0.6 (0.2-1.3) mg/dL AST 32 (17-59) U/L ALT 17 (4-49) U/L Alkaline Phosphatase 99 (38-126) U/L Total Protein 7.3 (6.3-8.2) g/dL Albumin 4.9 (3.5-5.0) g/dL Lipase 1846 H (23-300) U/L Urine Opiates Screen Not Detected (NotDetected) Ur Oxycodone Screen Not Detected (NotDetected) Urine Methadone Screen Not Detected (NotDetected) Ur Barbiturates Screen Not Detected (NotDetected) U Tricyclic Antidepress Not Detected (NotDetected) Ur Phencyclidine Scrn Not Detected (NotDetected) Ur Amphetamines Screen Not Detected (NotDetected) U Methamphetamines Scrn Not Detected (NotDetected) U Benzodiazepines Scrn Not Detected (NotDetected) Urine Cocaine Screen Not Detected (NotDetected) U Marijuana (THC) Screen Not Detected (NotDetected) Serum Alcohol 383 H* mg/dL Disposition Clinical Impression: Alcohol intoxication, Suicidal ideation, Pancreatitis Disposition: ADMITTED IP TO THIS [facility] Referrals: None,Stated [Primary Care Provider] - 1-2 days Time of Disposition: 19:56
[2024-10-18 17:55] LABS: Basophils # (A) 0.2 k/uL (0-0.2); Basophils % (A) 2 %; Eosinophils # (A) 0.3 k/uL (0-0.7); Eosinophils % (A) 3 %; HCT 51.7 % (39.0-53.0); HGB 16.9 gm/dL (13.0-17.5); Lymphocytes # (A) 3.7 k/uL (1.0-4.8); Lymphocytes % (A) 41 %; MCH 26.7 pg (25.0-35.0); MCHC 32.6 g/dL (31.0-37.0); MCV 81.8 fL (80.0-100.0); Mean Platelet Volume 6.4; Monocytes # (A) 0.5 k/uL (0-1.0); Monocytes % (A) 5 %; Neutrophils # (A) 4.2 k/uL (1.3-7.7); Neutrophils % (A) 47 %; Platelet Count 296 k/uL (150-450); RBC 6.32 m/uL (4.30-5.90); RDW 14.3 % (11.5-15.5)
[2024-10-18 18:06] LABS: ALT 17 U/L (4-49); African American GFR (CKD) >90 (>60 ml/min/1.73 sqM); Albumin 4.9 g/dL (3.5-5.0); Anion Gap 14 mmol/L; Blood Urea Nitrogen 17 mg/dL (9-20); Calcium 9.2 mg/dL (8.4-10.2); Carbon Dioxide 24 mmol/L (22-30); Chloride 104 mmol/L (98-107); Glucose 92 mg/dL (74-99); Lipase 1846 U/L (23-300); Non-African American GFR(CKD) 80 (>60 ml/min/1.73 sqM); Sodium 142 mmol/L (137-145); Total Bilirubin 0.6 mg/dL (0.2-1.3); Total Protein 7.3 g/dL (6.3-8.2)
[2024-10-18 18:07] LABS: Amphetamine Screen,Urine Not Detected (NotDetected); Barbiturate Screen,Urine Not Detected (NotDetected); Benzodiazepines Screen,Urine Not Detected (NotDetected); Cocaine Screen,Urine Not Detected (NotDetected); Methadone Screen, Urine Not Detected (NotDetected); Opiate Screen,Urine Not Detected (NotDetected); Oxycodone Screen, Urine Not Detected (NotDetected); Phencyclidine Screen,Urine Not Detected (NotDetected); Tricyclic Antidepressant,Urine Not Detected (NotDetected); Urn Cannabinoid Scrn Not Detected (NotDetected)
[2024-10-18 18:15] LABS: Alcohol 383 mg/dL
[2024-10-18 18:16] LABS: AST 32 U/L (17-59); Alkaline Phosphatase 99 U/L (38-126); Magnesium 2.5 mg/dL (1.6-2.3); Potassium 4.7 mmol/L (3.5-5.1)
[2024-10-18] MEDS: LORazepam 2 MG/ML INJ IV STA (19:31)
[2024-10-18] MEDS: SODIUM CHLORIDE 0.9% 1,000 ML IV ONE ×2 (19:31→21:59)
[2024-10-18] MEDS ORDERED: LORazepam 0.5 MG TAB PO PRN (19:58)
[2024-10-18] MEDS ORDERED: LORazepam 2 MG/ML INJ IV PRN ×3 (19:58)
[2024-10-18] MEDS ORDERED: LORazepam 1 MG TAB PO PRN (19:58)
[2024-10-18] MEDS: THIAMINE 100 MG/ML 2 ML VIAL IM STA (22:03)
[2024-10-18] MEDS ORDERED: LORazepam 1 MG/0.5 ML VIAL IV PRN ×3 (23:17→23:18)
[2024-10-19] MEDS ORDERED: IPRATROPIUM-ALBUTEROL 3 ML NEB INHALATION PRN (01:09)
--- NOTE | 2024-10-19 01:28 | P.HPIM ---
History of Present Illness H&P Date: 10/18/24 54-year-old male active alcoholic, COPD not on home oxygen Patient coming into the hospital for evaluation of suicidal ideation and acute alcohol intoxication patient does not provide any meaningful history at this point he is intoxicated history obtained by family member at bedside who does not provide much of the history reports that the patient was intoxicated and not doing well been drinking heavily for few days for which they brought him to the hospital for evaluation after he started reporting some suicidal ideation. Family member also reported patient has COPD but does not use any home oxygen otherwise she does not know any further information. Patient seems to be laying comfortable in bed however when asked any questions he turns her his back against me and does not answer anything he does not seem to be in any pain review of systems Pertinent positives as noted in HPI. All other systems were reviewed and are negative on exam Constitutional: No acute distress, uncooperative Eyes: Anicteric sclerae, moist conjunctiva, Pupils equal round reactive to light ENMT: NC/AT Neck: Supple, no masses, or JVD No carotid bruits No thyromegaly Lungs: Good breath sounds bilaterally with diffuse expiratory wheezing Clear to percussion Normal respiratory effort, no accessory muscle use Cardiovascular: Heart regular in rate and rhythm, No murmurs, gallops, or rubs No peripheral edema Abdominal: Soft Nontender, no guarding, rebound or rigidity Abdomen moving with respiration Normoactive bowel sounds Extremities: No digital cyanosis No clubbing Pedal pulses intact and symmetrical Radial pulses intact and symmetrical No calf tenderness Psychiatric: Awake does not participate in history taking or exam Neuro patient moving all 4 extremities spontaneously and purposefully does not cooperate with exam Past Medical History Past Medical History: COPD, Hypertension Additional Past Medical History / Comment(s): IBS History of Any Multi-Drug Resistant Organisms: None Reported Past Surgical History: No Surgical Hx Reported Past Anesthesia/Blood Transfusion Reactions: No Reported Reaction Past Psychological History: Anxiety, Depression Smoking Status: Current every day smoker Past Alcohol Use History: Abuse, Daily Past Drug Use History: None Reported Medications and Allergies Home Medications Medication Instructions Recorded Confirmed Type No Known Home Medications 10/18/24 10/18/24 History Allergies Allergy/AdvReac Type Severity Reaction Status Date / Time Penicillins Allergy Rash/Hives Verified 10/18/24 19:31 Physical Exam Vitals: Vital Signs Temp Pulse Pulse Resp BP BP Pulse Ox 10/18/24 23:20 97.4 F L 72 17 127/84 94 L 10/18/24 23:05 97.4 F L 77 20 115/69 98 10/18/24 21:55 58 L 18 123/85 95 10/18/24 17:06 74 18 132/93 92 L Intake and Output 10/18/24 10/18/24 10/19/24 14:59 22:59 06:59 Other: Weight 72.575 kg 72.575 kg Results CBC & Chem 7: 10/18/24 17:44 10/18/24 17:44 Labs: Abnormal Lab Results - Last 24 Hours (Table) 10/18/24 10/18/24 Range/Units 17:44 17:44 RBC 6.32 H (4.30-5.90) m/uL Magnesium 2.5 H (1.6-2.3) mg/dL Lipase 1846 H (23-300) U/L Serum Alcohol 383 H* mg/dL Thrombosis Risk Factor Assmnt - Choose All That Apply Any of the Below Risk Factors Present?: Yes Each Factor Represents 1 point: Age 41-60 years Other Risk Factors: No Other congenital or acquired thrombophilia - If yes, enter type in comment: No Thrombosis Risk Factor Assessment Total Risk Factor Score: 1 Thrombosis Risk Factor Assessment Level: Low Risk Assessment and Plan Assessment: 54-year-old male with alcohol dependence, coming in for suicidal ideation I discussed case with ED doctor accepted the admission for acute alcohol intoxication suicidal ideation with anticipated length of stay more than 2 midnights Suicidal ideation Suicidal precautions Psych consultation Acute alcohol intoxication Monitor for alcohol withdrawal Benzo per CIWA scale Thiamine 100 mg p.o. daily IV fluid hydration normal saline 100 cc/h Serum alcohol level 383 elevated Elevated lipase of 1846 Rule out pancreatitis N.p.o. IV fluid hydration normal saline Patient currently not in any pain COPD currently compensated DuoNebs as needed and scheduled [id number] 4 times daily Full code Suicide precautions DVT prophylaxis Lovenox 40 mg subcu daily Blood work overall otherwise unremarkable white count 9 hemoglobin 16.9 Renal function showing sodium 142 potassium 4.7 BUN 17 creatinine 1 unremarkable Liver enzymes showing total bili of 0.6 AST 32 ALT 17 alkaline phosphatase 99 unremarkable Urine drug screen is negative
[2024-10-19] MEDS: IPRATROPIUM-ALBUTEROL 3 ML NEB INHALATION SCH (08:44)
--- NOTE | 2024-10-19 10:58 | P.DS ---
Providers Date of admission: 10/18/24 19:59 Expected date of discharge: 10/19/24 Attending physician: Carson Norman Consults: 10/18/24 20:00 Consult Physician Routine Consulting Provider: Joshua Kincaid Consult Reason/Comments: Suicidal ideations Do you want consulting provider notified?: Yes Primary care physician: Stated None Hospital Course: 54 year old M with PMH EtOH abuse and COPD not on oxygen presents to the ED for altered mentation, alcohol intoxication and suicidal ideation. In the ED he underwent extensive evaluation. BP 132/93, HR 74, RR 18, T 97.4F, 92% on RA. CBC, CMP significant for RBC 6.32. Mag 2.5. Lipase 1856. UDS neg. EtOH 383. Patient admitted for further workup and management. Started on CIWA protocol and given Ativan as needed. Psychiatry consulted for SI. 10/19 Patient was seen and examined. Reports no complaints. Denies suicidal or homicidal ideations. No auditory or visual hallucinations. Discharge Plans: Medically stable for discharge. Awaiting Psychiatry recommendations. General: non toxic, no distress, appears at stated age Derm: warm, dry Head: atraumatic, normocephalic, symmetric Mouth: no lip lesion, mucus membranes moist Cardiovascular: S1S2 reg, no murmur Lungs: Scattered expiratory wheezing bilaterally, no rales , no accessory muscle use Ext: no gross muscle atrophy, no edema, no contractures Neuro: no focal neuro deficits Psych: Alert and oriented x 3 Discharge Diagnosis: Alcohol intoxication Elevated Lipase Suicidal ideation COPD with mild exacerbation This complex discharge took 35 minutes to complete. Patient Condition at Discharge: Stable Plan - Discharge Summary Discharge Rx Participant: Yes New Discharge Prescriptions: No Action No Known Home Medications Discharge Medication List No Known Home Medications 10/18/24 [History] Follow up Appointment(s)/Referral(s): None,Stated [Primary Care Provider] - 1-2 days
[2024-10-19] MEDS: ENOXAPARIN 40 MG/0.4 ML SYRINGE SQ SCH (11:40)
[2024-10-19] MEDS ORDERED: traZODone HCL 50 MG TAB PO PRN ×2 (13:59→19:53)
--- NOTE | 2024-10-19 14:05 | P.CN ---
Psychiatric Consult - . Consult date: 10/19/24 Consult:: 10/19/24 13:17 IDENTIFYING DATA: This patient is a 54-year-old male , currently is lives with his in a house he has 1 kid, he is currently unemployed. REASON FOR REFERRAL: Psychiatry was consulted for suicidal ideations HISTORY OF PRESENT ILLNESS: The patient presented to the hospital initially on 10/18 for alcohol intoxication, endorsing suicidal ideations with a plan to shoot himself. Patient blood alcohol level was 383. Urine drug screen was negative. Patient's lipase was elevated at 1846. Patient was seen at the bedside today, had a one-to-one sitter at the side. Patient claims that he is been drinking too much alcohol. Claims that he has gotten "out of hand". Claims that has been years now since he has been drinking, has been unable to cut back. Claims that he drinks about 2 pints of whiskey a day. He was minimizing his drinking, also minimizing any psychiatric issues or stressors. Claims that he does have depression and anxiety. Did admit to stating that he was suicidal however was a ttempting to take it back, and minimize his suicidal statements. Denies any homicidal ideations at this time. Denying any auditory or visual hallucinations. Patient denies any paranoia or delusions. He claims that his sleep and appetite are poor. He is not reporting any withdrawal symptoms at this time. Patients admits to using etoh regularly as noted above, claims that he is never been to rehab or never had a DUI in the past. States that he also smokes cigarettes. Denies any other recreational drug use PAST PSYCHIATRIC HISTORY: Patient has a a history of alcohol use disorder, depression anxiety. Patient denies being on any psychiatric medications. Patient denies any previous psychiatric hospitalizations. Patient was last seen by production underwriter for consultation and March 2024. Patient denies any psychiatric outpatient follow-up. Patient denies any history of suicide attempts in the past. Past Medical History: COPD History of Any Multi-Drug Resistant Organisms: None Reported Past Surgical History: No Surgical Hx Reported Past Psychological History: Anxiety, Depression Smoking Status: Current every day smoker Past Alcohol Use History: Abuse, Daily Past Drug Use History: None Reported ALLERGIES: as per EMR. CHEMICAL DEPENDENCY HISTORY: as per HPI. FAMILY PSYCHIATRIC/SUBSTANCE USE HISTORY: Denies SOCIAL HISTORY: Patient was born and raised in [place] and also in [place]. 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 States that he was [facility] for disorderly conduct, denies any history of DUIs. MENTAL STATUS EXAM: General Appearance: Patient appears to be thin, wearing glasses, unshaven, stated age is alert, pleasant, and temps to be cooperative. Unkempt appearance. Patient appears to have poor hygiene and grooming wearing hospital gown with fair eye contact. Behavior: Patient is calmly lying in bed without any agitated behavior. Fairly guarded, evasive. Speech: Patient's speech is fluent and nonpressured. Mood/Affect: Patient reports their mood is "depressed and anxious", affect is congruent and constricted Suicidality/Homicidality: Patient denies having any current suicidal or homicidal ideation intent or plan. however did claim that he feels suicidal when he drinks and did endorse saying he was going to "shoot himself" when he came into the hospital. Perceptions: Patient denies any visual hallucinations and denies any auditory hallucinations Though content/process: There is no evidence of any delusional thought content and thought process is linear and goal-directed. Minimizing, focused on discharge. Memory and concentration: AOX3, grossly intact for the purposes of this session. Can spell "WORLD" backwards Judgment and insight: Poor IMPRESSIONS: Depressive disorder unspecified Alcohol use disorder, severe dependence Nicotine dependence PLAN: -At this time patient DOES meet criteria for inpatient psychiatric admission. -Would recommend the following medication changes/additions: Start Librium 20 mg 3 times daily for alcohol withdrawal. Trazodone 50 mg nightly as needed for insomnia. -CIWA protocol with PRN Ativan for alcohol withdrawal. Continue to monitor vital signs. -Silk Presser spoke with patient about substance abuse and the harmful effects on medical and mental health, patient verbally understood and agreed. -Communicated plan to patient's nurse -Psychiatry will sign off at this time. once patient is medically cleared can be transferred to [facility] when a bed is available. -Please contact with any questions. 10/19/24 13:19 10/19/24 13:59
[2024-10-19 16:08] LABS: Influenza A Not Detected (Not Detectd); Influenza B Not Detected (Not Detectd); RSV Not Detected (Not Detectd)
[2024-10-19 16:36] VITALS: BP 157/97; PULSE 92; RESP 19; TEMP 98.4
[2024-10-19] MEDS ORDERED: MAG HYDROX/AL HYDROX/SIMETH 30 ML CUP PO PRN (19:53)
[2024-10-19] MEDS ORDERED: LORazepam 1 MG TAB PO PRN ×2 (19:53)
[2024-10-19] MEDS ORDERED: IBUPROFEN 600 MG TAB PO PRN (19:53)
[2024-10-19] MEDS ORDERED: ACETAMINOPHEN TAB 325 MG TAB PO PRN (19:53)
[2024-10-19] MEDS ORDERED: haloperidoL 5 MG TAB PO PRN (19:53)
[2024-10-19] MEDS ORDERED: MAGNESIUM HYDROXIDE 2,400 MG/30 ML CUP PO PRN (19:53)
[2024-10-19] MEDS ORDERED: HALOPERIDOL LACTATE 5 MG/ML 1 ML VIAL IM PRN (19:53)
[2024-10-19] MEDS ORDERED: NICOTINE 14MG/24HR PATCH TRANSDERM SCH (20:00)
[2024-10-20] MEDS ORDERED: THIAMINE 100 MG TAB PO SCH (09:00)
[2024-10-20] MEDS ORDERED: MULTIVITAMINS, THERA 1 EACH TAB PO SCH (09:00)
[2024-10-20] MEDS ORDERED: FOLIC ACID 1 MG TAB PO SCH (09:00)
== END 2024-10-19 20:04 | DRG 897 ==
LOC: EC 17:00 → 4SSUR 19:59
PROVIDERS: ADMIT Student in an Organized Health Care Education/Training Program; ATTEND Student in an Organized Health Care Education/Training Program
PROC: HZ2ZZZZ Detoxification Services for Substance Abuse Treatment (ICD-10-PCS; principal; 2024-10-18)
DX: F10.229 Alcohol dependence with intoxication, unspecified (principal); J44.1 Chronic obstructive pulmonary disease with (acute) exacerbation; F32.A Depression, unspecified; R45.851 Suicidal ideations; Z11.52 Encounter for screening for COVID-19; F17.210 Nicotine dependence, cigarettes, uncomplicated; F41.9 Anxiety disorder, unspecified; Y90.8 Blood alcohol level of 240 mg/100 ml or more; Z71.6 Tobacco abuse counseling; Z71.41 Alcohol abuse counseling and surveillance of alcoholic; Z88.0 Allergy status to penicillin; Z56.0 Unemployment, unspecified
CPT/HCPCS: 36415; 80053; 80306; 80320; 83690; 83735; 85025; 87636; 93005; 96361; 96372; 96374; 99285

== ENCOUNTER 2024-10-19 19:10 | Inpatient (IN) | payer MEDICAID, OTHER ==
[2024-10-19] MEDS ORDERED: HALOPERIDOL LACTATE 5 MG/ML 1 ML VIAL IM PRN (21:37)
[2024-10-19] MEDS ORDERED: MAGNESIUM HYDROXIDE 2,400 MG/30 ML CUP PO PRN (21:37)
[2024-10-19] MEDS ORDERED: LORazepam 2 MG/ML INJ IM PRN (21:37)
[2024-10-19] MEDS ORDERED: ACETAMINOPHEN TAB 325 MG TAB PO PRN (21:37)
[2024-10-19] MEDS ORDERED: traZODone HCL 50 MG TAB PO PRN (21:37)
[2024-10-19] MEDS ORDERED: LORazepam 1 MG TAB PO PRN ×3 (21:37)
[2024-10-19] MEDS ORDERED: IBUPROFEN 600 MG TAB PO PRN (21:37)
[2024-10-19] MEDS ORDERED: haloperidoL 5 MG TAB PO PRN (21:37)
[2024-10-20] MEDS: MULTIVITAMINS, THERA 1 EACH TAB PO SCH (08:51)
[2024-10-20] MEDS: THIAMINE 100 MG TAB PO SCH (08:51)
[2024-10-20] MEDS: FOLIC ACID 1 MG TAB PO SCH (08:51)
[2024-10-20] MEDS: NICOTINE 14MG/24HR PATCH TRANSDERM SCH (08:51)
[2024-10-20] MEDS: MAG HYDROX/AL HYDROX/SIMETH 355 ML BOTTLE PO PRN (08:51)
[2024-10-20] MEDS ORDERED: IPRATROPIUM-ALBUTEROL 3 ML NEB INHALATION PRN (12:06)
[2024-10-20] MEDS: SERTRALINE 25 MG TAB PO SCH (12:27)
[2024-10-20] MEDS: NALTREXONE HCL 50 MG TAB PO SCH (12:27)
--- NOTE | 2024-10-20 12:31 | P.HP ---
Psychiatric H&P - . H&P Date: 10/20/24 History & Physical: Allergies Allergy/AdvReac Type Severity Reaction Status Date / Time Penicillins Allergy Rash/Hives Verified 10/18/24 19:31 Vital Signs Temp 97.8 F 10/20/24 08:48 Pulse 73 10/20/24 08:48 Resp 16 10/19/24 21:04 BP 157/93 10/20/24 08:48 Pulse Ox 96 10/20/24 08:48 FiO2 Intake & Output 10/19/24 10/20/24 10/20/24 18:59 06:59 18:59 Weight 65.952 kg 65.2 kg 10/20/24 12:06 IDENTIFYING DATA: This patient is a 54-year-old male , currently is lives with his in a house he has 1 kid, he is currently unemployed. HISTORY OF PRESENT ILLNESS: Patient was seen yesterday for psychiatric consultation on the medical floors and as per note "the patient presented to the hospital initially on 10/18 for alcohol intoxication, endorsing suicidal ideations with a plan to shoot himself. Patient blood alcohol level was 383. Urine drug screen was negative. Patient's lipase was elevated at 1846. Patient was seen at the bedside today, had a one-to-one sitter at the side. Patient claims that he is been drinking too much alcohol. Claims that he has gotten "out of hand". Claims that has been years now since he has been drinking, has been unable to cut back. Claims that he drinks about 2 pints of whiskey a day. He was minimizing his drinking, also minimizing any psychiatric issues or stressors. Claims that he does have depression and anxiety. Did admit to stating that he was suicidal however was attempting to take it back, and minimize his suicidal statements. Denies any homicidal ideations at this time. Denying any auditory or visual hallucinations. Patient denies any paranoia or delusions. He claims that his sleep and appetite are poor. He is not reporting any withdrawal symptoms at this time. Patients admits to using etoh regularly as noted above, claims that he is never been to rehab or never had a DUI in the past. States that he also smokes cigarettes. Denies any other recreational drug use". Patient was seen today agreeable to speak with automatic typewriter inspector in the office. Mild hygiene and grooming improvement. He continues to be fairly constricted in his affect, endorsing mild depression, claims he does feel a bit better since being on the unit. He was fairly focused on discharge, continues to minimize his alcohol use. He was agreeable to try medications at this time including Zoloft and trazodone. States that he is interested in possibly going to rehab and also interested in naltrexone. Claims that the withdrawal symptoms have been improving. Claims that he slept a bit better last night has a fair appetite. Denies any auditory visual hallucinations denies any suicidal or homicidal ideations intent or plan PAST PSYCHIATRIC HISTORY: Patient has a a history of alcohol use disorder, depression anxiety. Patient denies being on any psychiatric medications. Patient denies any previous psychiatric hospitalizations. Patient was last seen by automatic typewriter inspector for consultation and March 2024. Patient denies any psychiatric outpatient follow-up. Patient denies any history of suicide attempts in the past. Past Medical History: COPD History of Any Multi-Drug Resistant Organisms: None Reported Past Surgical History: No Surgical Hx Reported Past Psychological History: Anxiety, Depression Smoking Status: Current every day smoker Past Alcohol Use History: Abuse, Daily Past Drug Use History: None Reported ALLERGIES: as per EMR. CHEMICAL DEPENDENCY HISTORY: as per HPI. FAMILY PSYCHIATRIC/SUBSTANCE USE HISTORY: Denies SOCIAL HISTORY: Patient was [place] 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 States that he was in [facility] previously for disorderly conduct, denies any history of DUIs. MENTAL STATUS EXAM: General Appearance: Patient appears to be thin, wearing glasses, unshaven, stated age is alert, pleasant, and temps to be cooperative. Patient appears to have improving hygiene and grooming wearing hospital gown with fair eye contact. Behavior: Patient is calmly sitting in the chair without any agitated behavior. Fairly guarded, evasive. Fairly superficial Speech: Patient's speech is fluent and nonpressured. Fairly concrete Mood/Affect: Patient reports their mood is "a bit better", affect is congruent and constricted Suicidality/Homicidality: Patient denies having any current suicidal or homicidal ideation intent or plan. however did claim that he feels suicidal when he drinks and did endorse saying he was going to "shoot himself" when he came into the hospital. Perceptions: Patient denies any visual hallucinations and denies any auditory hallucinations Though content/process: There is no evidence of any delusional thought content and thought process is linear and goal-directed. Minimizing, focused on discharge. Memory and concentration: AOX3, grossly intact for the purposes of this session. Can spell "WORLD" backwards Judgment and insight: Poor/superficial Strengths/weakness: Patient strength is that she has a stable place to live, good support, weaknesses patient has poor insight has substance abuse issues IMPRESSIONS: Depressive disorder unspecified Alcohol use disorder, severe dependence Nicotine dependence PLAN: -Patient is admitted under voluntary status to [facility] for stabilization of psychiatric symptoms and safety. Patient has signed adult voluntary form and has signed medication consent and is placed in patient's chart. -Medications : Zoloft 25 mg daily for mood/anxiety. Trazodone 50 mg nightly for mood/insomnia, naltrexone 50 mg nightly for anticraving alcohol. -Ativan and Haldol PRN for agitation/aggression -Started thiamine, MVM for etoh use -CIWA protocol with Ativan PRN for ETOH withdrawal. Scheduled Librium for alcohol withdrawal with plan to taper. -Patient was counselled on substance abuse and desired to cut back on use. Patient claims that he is interested in going to rehab. -Patient was informed of the risks, benefits and side effects of the medications and patient verbally consented to taking the medications. Patient signed med consent form and was placed in chart. Patient was offered medication information and declined it -Internal Medicine consult to perform medical evaluation and physical. -NRT -nicotine patch -SW on board for discharge planning. Encourage patient to participate in groups to work on coping skills. He is interested in rehab 10/20/24 12:28 10/20/24 12:31
[2024-10-20] MEDS ORDERED: ALBUTEROL HFA INHALER INHALATION PRN (12:44)
[2024-10-20] MEDS: traZODone HCL 50 MG TAB PO SCH (22:31)
[2024-10-21 08:36] LABS: Chol/HDL Ratio 3.04 Ratio; LDL Cholesterol,Calculated 58.6 mg/dL (0.0-131.0)
[2024-10-21] MEDS: LOPERAMIDE 2 MG CAP PO PRN (10:45)
--- NOTE | 2024-10-21 10:52 | P.PN ---
Progress Note - Text Progress Note Date: 10/21/24 Interval History: Patient was seen in bed and was directable and agreeable to speak with racebook writer in the office. Patient reports adverse effects including loose stools, nausea related to medications. He feels as though the symptoms are not related to withdrawing from alcohol however he is on Librium with as needed Ativan for this. He states previously making suicidal statements however this was in the context of intoxication with alcohol, denying ever meaning the statements. He states living with his and mother however he is open to going to rehab upon discharge. Patient did display poor insight into his need for treatment however was agreeable with trying a different antidepressant. He reports sleeping and eating well. At this time patient denies any suicidal or homicidal ideations, intent or plan. Patient denies any auditory, visual hallucinations and denies any paranoia or delusions. Patient denies any side effects from the medications and has been compliant with meds. Mental Status Exam: General Appearance: Patient appears to be stated age is alert, directable, and cooperative. He has poor grooming Behavior: Patient is calmly seated without any agitated behavior. Speech: Patient's speech is fluent and nonpressured. Mood/Affect: Mood is improving mildly, affect is congruent and constricted. Suicidality/Homicidality: Patient denies having any suicidal or homicidal ideation intent or plan. Perceptions: Patient denies any visual hallucinations and denies any auditory hallucinations Though content/process: There is no evidence of any delusional thought content and thought process is linear and goal-directed. Memory and concentration: AOX3, grossly intact for the purposes of this session Judgment and insight: Improving mildly Assessment Depression, unspecified Rule out substance-induced depressive disorder Alcohol use disorder, severe in withdrawal Nicotine dependence Plan: -Patient continues to meet criteria for inpatient psychiatric admission for symptom stabilization and safety. Patient has signed adult voluntary form and medication consent and was placed in patient's chart. -Medications: Discontinue Zoloft and start Remeron 7.5 mg at bedtime for mood/sleep/anxiety given adverse effects, decrease naltrexone to 25 mg daily for alcohol cravings given adverse effects, continue trazodone 50 mg at bedtime for insomnia -When necessary Ativan and Haldol for agitation/aggression. -Labs: Reviewed -NRT - nicotine patch -CIWA protocol with Ativan PRN for ETOH withdrawal. Patient also on Librium however this will be decreased and eventually tapered off prior to discharge -SW on board for discharge planning. Encouraged the patient to participate in milieu. Anticipate discharge to rehab versus home with in 2 days
--- NOTE | 2024-10-21 20:57 | P.CONS ---
History of Present Illness - Reason for Consult Consult date: 10/21/24 medical management - Chief Complaint suicidal ideation - History of Present Illness Ammon is a 54 yo M with a pmhx of etoh use disorder and primary htn. He presents to the hospital due to etoh intoxication and having suididal ideation. Internal medicine was consulted for medical co-management by psychiatry. he is currently seen in room 306. He is seem under [facility]. he expresses he drinks whisky. he reports his last drink was yesterday. he endorses minimal etoh withdrawal symptoms at this time. he denies any compliants. per discussion with nurse who was present at my evaluation. Current labwork shows an a1c of 5.6%. lipid profile shows ldl of 58. hdl of 54. tsh of 2.57. Review of Systems Pertinent positives and negatives as discussed in HPI, a complete review of systems was performed and all other systems are negative. Past Medical History Past Medical History: COPD, Hypertension Additional Past Medical History / Comment(s): IBS History of Any Multi-Drug Resistant Organisms: None Reported Past Surgical History: No Surgical Hx Reported Past Anesthesia/Blood Transfusion Reactions: No Reported Reaction Past Psychological History: Anxiety, Depression Smoking Status: Current every day smoker Past Alcohol Use History: Abuse, Daily Past Drug Use History: None Reported Medications and Allergies Home Medications Medication Instructions Recorded Confirmed Type Ipratropium-Albuterol Nebulize 3 ml INHALATION RT-Q2H PRN each 10/19/24 Rx [Duoneb 0.5 mg-3 mg/3 ml Soln] chlordiazePOXIDE HCl [Librium] 20 mg PO TID cap 10/19/24 Rx traZODone HCL [Desyrel] 50 mg PO HS PRN tab 10/19/24 Rx Allergies Allergy/AdvReac Type Severity Reaction Status Date / Time Penicillins Allergy Rash/Hives Verified 10/18/24 19:31 Physical Exam Vitals: Vital Signs Temp Pulse Resp BP Pulse Ox 10/21/24 11:28 98.2 F 83 16 167/83 96 10/21/24 09:00 97.4 F L 75 16 97/66 96 General: non toxic, no distress, appears older than stated age. no obvious tremors Derm: warm, dry Head: atraumatic, normocephalic, symmetric Eyes: EOMI, no lid lag, anicteric sclera ENT: Nose and ears atraumatic, no thrush, no pharyngeal erythema Neck: No thyromegaly, no cervical lymphadenopathy, trachea midline, supple Mouth: no lip lesion, mucus membranes moist Cardiovascular: S1S2 reg, no murmur Lungs: clear to auscultation bilateral on room air Abdominal: soft, nontender to palpation, no guarding Ext: no gross muscle atrophy Neuro: moving all extremities spontaneously Psych: calm and operative Results Labs: Abnormal Lab Results - Last 24 Hours (Table) 10/18/24 Range/Units 06:00 Triglycerides 257.00 H (0.00-149.00) mg/dL VLDL Cholesterol, Calc 51.40 H (5.00-40.00) mg/dL Assessment and Plan Assessment: #) Major depressive disorder. management as per psychiatry team. continue zoloft 25 mg daily along with trazodone #) ETOH use disorder with withdrawal. currently has low ciwa scores at this time. continue ciwa with prn ativan. continue thiamine supplementation. currently on librum 10 mg tid. continue mvi/thiamine/folic acid supplementation #) tobacco use. cessation recommended. nicotine patch while inpatient Thank you for allowing us to take care of this patient. Please contact [facility] if there are any questions.
[2024-10-21] MEDS: MIRTAZAPINE 15 MG TAB PO SCH (21:50)
[2024-10-22] MEDS: NALTREXONE HCL 50 MG TAB PO SCH (10:01)
[2024-10-22 10:46] VITALS: BP 148/98; PULSE 111; RESP 18; TEMP 98.1
--- NOTE | 2024-10-22 13:46 | P.DS ---
Providers Date of admission: 10/19/24 21:01 Expected date of discharge: 10/22/24 Attending physician: Safia Arenas MD Consults: 10/19/24 21:37 Consult Physician Routine Consulting Provider: Brenda Faye Consult Reason/Comments: History and Physical, New Admission Do you want consulting provider notified?: Yes Primary care physician: Stated None - Discharge Diagnosis(es) (1) Depression, unspecified Current Visit: Yes Status: Acute Priority: High (2) Alcohol use disorder Current Visit: Yes Status: Acute Priority: High (3) Nicotine dependence Current Visit: Yes Status: Acute Priority: Low Hospital Course: Admission HPI: Admission note was completed by Dr. Kincaid " Patient was seen yesterday for psychiatric consultation on the medical floors and as per note "the patient presented to the hospital initially on 10/18 for alcohol intoxication, endorsing suicidal ideations with a plan to shoot himself. Patient blood alcohol level was 383. Urine drug screen was negative. Patient's lipase was elevated at 1846. Patient was seen at the bedside today, had a one-to-one sitter at the side. Patient claims that he is been drinking too much alcohol. Claims that he has gotten "out of hand". Claims that has been years now since he has been drinking, has been unable to cut back. Claims that he drinks about 2 pints of whiskey a day. He was minimizing his drinking, also minimizing any psychiatric issues or stressors. Claims that he does have depression and anxiety. Did admit to stating that he was suicidal however was attempting to take it back, and minimize his suicidal statements. Denies any homicidal ideations at this time. Denying any auditory or visual hallucinations. Patient denies any paranoia or delusions. He claims that his sleep and appetite are poor. He is not reporting any withdrawal symptoms at this time. Patients admits to using e nilsa regularly as noted above, claims that he is never been to rehab or never had a DUI in the past. States that he also smokes cigarettes. Denies any other recreational drug use". Patient was seen today agreeable to speak with flex o writer operator in the office. Mild hygiene and grooming improvement. He continues to be fairly constricted in his affect, endorsing mild depression, claims he does feel a bit better since being on the unit. He was fairly focused on discharge, continues to minimize his alcohol use. He was agreeable to try medications at this time including Zoloft and trazodone. States that he is interested in possibly going to rehab and also interested in naltrexone. Claims that the withdrawal symptoms have been improving. Claims that he slept a bit better last night has a fair appetite. Denies any auditory visual hallucinations denies any suicidal or homicidal ideations intent or plan" Hospital course: Upon admission to the unit patient was directable and agreeable to commence treatment and signed adult voluntary form.. Patient got along well with other patients on the unit and followed unit protocol. Patient was compliant with the medications and denied any side effects throughout hospital course. Patient was started on Zoloft however he was reporting adverse effects and thus this was discontinued and he was started instead on Remeron 7.5 mg at bedtime for mood/sleep/anxiety, naltrexone was decreased to 25 mg daily for alcohol cravings given adverse effects, trazodone 50 mg at bedtime for insomnia. Patient spoke of his stressors and engaged in therapy both group and individual. Patient was also seen by medical team for history and physical exam. Throughout the course of the hospitalization patient gradually improved with regards to mood, anxiety, sleep and returned back to their baseline level of functioning. On the day of discharge patient denied any suicidal or homicidal ideations intent or plan denied any auditory or visual hallucinations. The patient denied any access to guns or weapons. Patient denied any paranoia and did not endorse any delusions. Patient does have a significant history of substance abuse and was counseled on abstaining from all substances including alcohol and marijuana. Patient elected to do outpatient substance use treatment program through their outpatient provider. Patient was also counseled on the medications and need for regular compliance and was encouraged to follow-up with their outpatient appointment for mental health and also for primary care. Prior to discharge a family meeting will be arranged by director of social media marketing to answer any questions and ensure safety upon discharge including making sure that guns/weapons are either removed from the home or locked away. Patient to be discharged back home with and will follow-up with [facility]. Mental status exam: General Appearance: Patient appears to be stated age is alert, pleasant, and cooperative. Patient is in no acute distress and has fair hygiene and grooming Behavior: Patient is calmly seated without any agitated behavior. Speech: Patient's speech is fluent and nonpressured. Mood/Affect: Patient reports their mood is "better", affect is congruent and euthymic. Suicidality/Homicidality: Patient denies having any suicidal or homicidal ideation intent or plan. Perceptions: Patient denies any auditory or visual hallucinations. Though content/process: There is no evidence of any delusional thought content and thought process is linear and goal-directed. More future oriented Memory and concentration: AOX3, grossly intact for the purposes of this session. Can spell "WORLD" backwards correctly. Judgment and insight: Fair Impression: Depression, unspecified Rule out substance-induced depressive disorder Alcohol use disorder, severe Nicotine dependence Plan: -Continue with discharge today as patient has improved and stabilized psychiatrically and is not currently an imminent threat to themself and/or others. Patient will remain at chronically elevated risk for harm to self and/or others due to their impulsivity and substance abuse. -Continue medications: Remeron 7.5 mg at bedtime, naltrexone 25 mg daily, trazodone 50 mg at bedtime -Patient was counseled on the need for medication compliance and appropriate follow-up at mental health and also primary care for medical issues. Patient verbalized understanding and agreed. -Social work to help coordinate patients discharge today arrange for and conduct family meeting to ensure safety upon discharge and answer any questions/concerns. also to ensure safe home environment that guns/weapons are either removed from the home or locked away. Social work also to arrange for patients follow up appointments with [facility] for psychiatric care along with follow up with primary care provider. -Patient counseled on abstaining from recreational drugs and marijuana and alcohol. Was informed/educated on the adverse effects on their physical and mental health. Patient verbally agreed and understood. Patient was offered substance abuse treatment however declined at this time. -Patient was instructed to return to the hospital or seek immediate medical care if their psychiatric or medical symptoms do worsen or reoccur. Abnormal Labs 10/18/24 06:00 Triglycerides 257.00 H VLDL Cholesterol, Calc 51.40 H Allergies Allergy/AdvReac Type Severity Reaction Status Date / Time Penicillins Allergy Rash/Hives Verified 10/18/24 19:31 Vital Signs Temp 98.1 F 10/22/24 09:00 Pulse 111 H 10/22/24 09:00 Resp 18 10/22/24 09:00 BP 148/98 10/22/24 09:00 Pulse Ox 96 10/22/24 09:00 FiO2 Patient Condition at Discharge: Stable Plan - Discharge Summary Discharge Rx Participant: No New Discharge Prescriptions: New Folic Acid 1 mg PO DAILY 30 Days #30 tab Nicotine 14Mg/24Hr Patch [Habitrol] 1 patch TRANSDERM DAILY patch Mirtazapine [Remeron] 7.5 mg PO HS 30 Days #15 tab Naltrexone HCl [Revia] 25 mg PO DAILY 30 Days #15 tab traZODone HCL [Desyrel] 50 mg PO HS 30 Days #30 tab Multivitamins, Thera [Multivitamin (formulary)] 1 each PO DAILY 30 Days #30 tab Thiamine [Vitamin B-1] 100 mg PO DAILY 30 Days #30 tab Discontinued traZODone HCL [Desyrel] 50 mg PO HS PRN tab PRN Reason: Insomnia Ipratropium-Albuterol Nebulize [Duoneb 0.5 mg-3 mg/3 ml Soln] 3 ml INHALATION RT-Q2H PRN each PRN Reason: Shortness Of Breath Or Wheezing chlordiazePOXIDE HCl [Librium] 20 mg PO TID cap Discharge Medication List Folic Acid 1 mg PO DAILY 30 Days #30 tab 10/22/24 [Rx] Mirtazapine [Remeron] 7.5 mg PO HS 30 Days #15 tab 10/22/24 [Rx] Multivitamins, Thera [Multivitamin (formulary)] 1 each PO DAILY 30 Days #30 tab 10/22/24 [Rx] Naltrexone HCl [Revia] 25 mg PO DAILY 30 Days #15 tab 10/22/24 [Rx] Nicotine 14Mg/24Hr Patch [Habitrol] 1 patch TRANSDERM DAILY patch 10/22/24 [Rx] Thiamine [Vitamin B-1] 100 mg PO DAILY 30 Days #30 tab 10/22/24 [Rx] traZODone HCL [Desyrel] 50 mg PO HS 30 Days #30 tab 10/22/24 [Rx] Follow up Appointment(s)/Referral(s): [facility] [Outside] - 10/24/24 10:30 [facility] [[facility]ERRING] - 1 Week Patient Instructions/Handouts: Depression (DC), Abuse of Alcohol (DC) Activity/Diet/Wound Care/Special Instructions: Avoid the use of street drugs and alcohol. Take all medications as prescribed. When you are in need of refills on your medications, please contact your medical provider and/or outpatient psychiatrist/provider to have this done. Please go to your scheduled outpatient appointment for aftercare treatment. If symptoms return or become worse, call the crisis line at and/or go to the nearest emergency room for evaluation. National Suicide Hotline [address] [facility] confidentiality statement: "The information contained in this communication, including attachments, is confidential, may be privileged, and is intended only for the use of the named recipient(s). Unauthorized use, disclosure, forwarding or copying is strictly prohibited and may be unlawful. If you have received this communication in error, please notify me IMMEDIATELY at the phone number or pager listed above. Discharge Disposition: HOME SELF-CARE
== END 2024-10-22 14:02 | disposition home or self-care (01) | DRG 751 ==
LOC: 3MHU 21:01
PROVIDERS: ADMIT Psychiatry & Neurology Psychiatry; ATTEND Psychiatry & Neurology Psychiatry
DX: F32.9 Major depressive disorder, single episode, unspecified (principal); F10.229 Alcohol dependence with intoxication, unspecified; F10.239 Alcohol dependence with withdrawal, unspecified; F17.210 Nicotine dependence, cigarettes, uncomplicated; R45.851 Suicidal ideations; Y90.8 Blood alcohol level of 240 mg/100 ml or more; I10 Essential (primary) hypertension; F41.9 Anxiety disorder, unspecified; G47.00 Insomnia, unspecified; Z79.899 Other long term (current) drug therapy; Z88.0 Allergy status to penicillin; Z56.0 Unemployment, unspecified
CPT/HCPCS: 80061; 83036; 84443

== ENCOUNTER 2024-12-16 13:14 | Observation (INO) | payer OTHER ==
[2024-12-16 13:33] LABS: Basophils # (A) 0.15 10*3/uL (0.00-0.10); Basophils % (A) 1.3 %; Eosinophils # (A) 0.13 10*3/uL (0.04-0.35); Eosinophils % (A) 1.1 %; HCT 48.6 % (39.6-50.0); HGB 16.6 g/dL (13.0-17.0); Lymphocytes # (A) 3.27 10*3/uL (0.90-5.00); Lymphocytes % (A) 27.7 %; MCH 27.5 pg (27.0-32.0); MCHC 34.2 g/dL (32.0-37.0); MCV 80.5 fL (80.0-97.0); Mean Platelet Volume 8.3 fL (9.5-12.2); Monocytes # (A) 0.55 10*3/uL (0.20-1.00); Monocytes % (A) 4.7 %; Neutrophils # (A) 7.67 10*3/uL (1.80-7.70); Neutrophils % (A) 64.8 %; Platelet Count 325 10*3/uL (140-440); RBC 6.04 10*6/uL (4.40-5.60); RDW 13.7 % (11.5-14.5); WBC 11.82 10*3/uL (4.50-10.00)
[2024-12-16] MEDS: SODIUM CHLORIDE 0.9% 500 ML 500 ML IV ONE (13:33)
[2024-12-16] MEDS: SODIUM CHLORIDE 0.9% 1,000 ML IV ONE (13:33)
[2024-12-16 13:47] LABS: ALT 16 U/L (4-49); AST 22 U/L (17-59); African American GFR (CKD) 77 (>60 ml/min/1.73 sqM); Alkaline Phosphatase 89 U/L (38-126); Anion Gap 16 mmol/L; Blood Urea Nitrogen 17 mg/dL (9-20); Calcium 9.4 mg/dL (8.4-10.2); Carbon Dioxide 21 mmol/L (22-30); Chloride 109 mmol/L (98-107); Glucose 110 mg/dL (74-99); Magnesium 2.1 mg/dL (1.6-2.3); Non-African American GFR(CKD) 67 (>60 ml/min/1.73 sqM); Potassium 4.2 mmol/L (3.5-5.1); Sodium 146 mmol/L (137-145); Total Bilirubin 0.5 mg/dL (0.2-1.3); Total Protein 7.6 g/dL (6.3-8.2)
[2024-12-16 13:52] LABS: Alcohol 283 mg/dL
[2024-12-16] MEDS ORDERED: LORazepam 0.5 MG TAB PO PRN (14:43)
[2024-12-16] MEDS ORDERED: LORazepam 1 MG TAB PO PRN ×4 (14:43)
[2024-12-16] MEDS ORDERED: NALOXONE 0.4 MG/ML 1 ML VIAL IV PRN (14:44)
[2024-12-16] MEDS ORDERED: ONDANSETRON 4 MG/2 ML VIAL IVP PRN (14:44)
[2024-12-16] MEDS ORDERED: PROCHLORPERAZINE 5 MG TAB PO PRN (14:44)
--- NOTE | 2024-12-16 14:44 | ED ---
General Adult HPI - General Chief complaint: Alcohol Stated complaint: ETOH Time Seen by Provider: 12/16/24 13:15 Source: patient, EMS, RN notes reviewed, old records reviewed Mode of arrival: EMS Limitations: no limitations - History of Present Illness Initial comments: This is a 54-year-old male who presents to the emergency department found lying outside of a liquor store with decreased responsiveness. When EMS got there they were able to arouse him and he stated he drank at least a pint of [place] comfort. Patient denies having fallen. Patient showed no signs of injury per EMS. Patient was able to help ambulate to the stretcher. Patient denies any pain currently. Patient has a headache patient has numbness weakness. Patient has chest pain difficulty breathing shortness of breath. Patient has abdominal pain patient has nausea vomiting diarrhea. - Related Data Previous Rx's Medication Instructions Recorded Folic Acid 1 mg PO DAILY 30 Days #30 tab 10/22/24 Mirtazapine [Remeron] 7.5 mg PO HS 30 Days #15 tab 10/22/24 Multivitamins, Thera [Multivitamin 1 each PO DAILY 30 Days #30 tab 10/22/24 (formulary)] Naltrexone HCl [Revia] 25 mg PO DAILY 30 Days #15 tab 10/22/24 Nicotine 14Mg/24Hr Patch [Habitrol] 1 patch TRANSDERM DAILY patch 10/22/24 Thiamine [Vitamin B-1] 100 mg PO DAILY 30 Days #30 tab 10/22/24 traZODone HCL [Desyrel] 50 mg PO HS 30 Days #30 tab 10/22/24 Allergies Allergy/AdvReac Type Severity Reaction Status Date / Time Penicillins Allergy Rash/Hives Verified 12/16/24 13:24 Review of Systems ROS Statement: Those systems with pertinent positive or pertinent negative responses have been documented in the HPI. ROS Other: All systems not noted in ROS Statement are negative. Past Medical History Past Medical History: COPD, Hypertension Additional Past Medical History / Comment(s): IBS History of Any Multi-Drug Resistant Organisms: None Reported Past Surgical History: No Surgical Hx Reported Past Anesthesia/Blood Transfusion Reactions: No Reported Reaction Past Psychological History: Anxiety, Depression Smoking Status: Current every day smoker Past Alcohol Use History: Abuse, Daily Past Drug Use History: None Reported General Exam - General Exam Comments Initial Comments: GENERAL: Patient is well-developed and well-nourished. Patient is nontoxic and well- hydrated and is in no acute distress. Patient seems highly intoxicated ENT: Neck is soft and supple. No significant lymphadenopathy is noted. Oropharynx is clear. Moist mucous membranes. Neck has full range of motion without eliciting any pain. EYES: The sclera were anicteric and conjunctiva were pink and moist. Extraocular movements were intact and pupils were equal round and reactive to light. Eyelids were unremarkable. PULMONARY: Unlabored respirations. Good breath sounds bilaterally. No audible rales rhonchi or wheezing was noted. CARDIOVASCULAR: There is a regular rate and rhythm without any murmurs gallops or rubs. ABDOMEN: Soft and nontender with normal bowel sounds. SKIN: Skin is clear with no lesions or rashes and otherwise unremarkable. NEUROLOGIC: Patient is alert and oriented x3. Cranial nerves II through XII are grossly intact. Motor and sensory are also intact. Normal speech, volume and content. Symmetrical smile. MUSCULOSKELETAL: Normal extremities with adequate strength and full range of motion. LYMPHATICS: No significant lymphadenopathy is noted PSYCHIATRIC: Patient denies any suicidal or homicidal ideations Limitations: no limitations Course Vital Signs 12/16/24 13:18 Temperature 98 F Pulse Rate 90 Respiratory 17 Rate Blood Pressure 151/111 O2 Sat by Pulse 92 L Oximetry Medical Decision Making - Medical Decision Making Was pt. sent in by a medical professional or institution ([facility], [employer], urgent care, hospital, or [facility]...) When possible be specific @ -No Did you speak to anyone other than the patient for history (EMS, parent, family, police, friend...)? What history was obtained from this source @ -No Did you review nursing and triage notes (agree or disagree)? Why? @ -I reviewed and agree with nursing and triage notes Were old charts reviewed (outside hosp., previous admission, EMS record, old EKG, old radiological studies, urgent care reports/EKG's, [facility] records)? Report findings @ -No old charts were reviewed Differential Diagnosis? @ -Differential Altered Mental Status: Hypoglycemia, DKA, hypercapnia, ETOH, overdose, CO poisoning, trauma, myxedema coma, HTN encephalopathy, infection, encephalitis, psychosis, intercranial hemorrhage, hepatic encephalopathy, meningitis, CVA, this is not meant to be an all-inclusive list EKG interpreted by me (3pts min.). @ -As above X-rays interpreted by me (1pt min.). @ -None done CT interpreted by me (1pt min.). @ -None done U/S interpreted by me (1pt. min.). @ -None done What testing was considered but not performed or refused? (CT, X-rays, U/S, labs)? Why? @ -None What meds were considered but not given or refused? Why? @ -None Did you discuss the management of the patient with other professionals (professionals i.e. , PA, [employer], lab, RT, psych nurse, secondary social studies teacher, microarray specialist, teacher, safety security officer, pillowcase folder)? Give summary @ -I spoke with [facility] [place] physicians agreed admit the patient admit the patient wrote admitting orders Was smoking cessation discussed for >3mins.? @ -No Was critical care preformed (if so, how long)? @ -No Were there social determinants of health that impacted care today? How? (Homelessness, low income, unemployed, alcoholism, drug addiction, t ransportation, low edu. Level, literacy, decrease access to med. care, correction, rehab)? @ -No Was there de-escalation of care discussed even if they declined (Discuss DNR or withdrawal of care, Hospice)? DNR status @ -No What co-morbidities impacted this encounter? (DM, HTN, Smoking, COPD, CAD, Cancer, CVA, ARF, Chemo, Hep., AIDS, mental health diagnosis, sleep apnea, morbid obesity)? @ -None Was patient admitted / discharged? Hospital course, mention meds given and route, prescriptions, significant lab abnormalities, going to OR and other pertinent info. @ -Patient was intoxicated with an alcohol level of 283. Patient was given a liter and a half normal saline. Patient will be admitted to [facility] [place] physicians with a Ativan withdrawal protocol Undiagnosed new problem with uncertain prognosis? @ -No Drug Therapy requiring intensive monitoring for toxicity (Heparin, Nitro, Insulin, Cardizem)? @ -No Were any procedures done? @ -No Diagnosis/symptom? @ -Alcohol intoxication Acute, or Chronic, or Acute on Chronic? @ -Acute Uncomplicated (without systemic symptoms) or Complicated (systemic symptoms)? @ -Complicated Side effects of treatment? @ -No Exacerbation, Progression, or Severe Exacerbation? @ -No Poses a threat to life or bodily function? How? (Chest pain, [place], CA, pneumonia, PE, COPD, DKA, ARF, appy, cholecystitis, CVA, Diverticulitis, Homicidal, Suicidal, threat to staff... and all critical care pts) @ -Yes this could lead to seizures and possible - Lab Data Result diagrams: 12/16/24 13:24 12/16/24 13:24 Lab Results 12/16/24 12/16/24 Range/Units 13:24 13:24 WBC 11.82 H (4.50-10.00) 10*3/uL RBC 6.04 H (4.40-5.60) 10*6/uL Hgb 16.6 (13.0-17.0) g/dL Hct 48.6 (39.6-50.0) % MCV 80.5 (80.0-97.0) fL MCH 27.5 (27.0-32.0) pg MCHC 34.2 (32.0-37.0) g/dL Plt Count 325 (140-440) 10*3/uL MPV 8.3 L (9.5-12.2) fL Immature Gran % (Auto) 0.4 % Neutrophils % 64.8 % Lymphocytes % 27.7 % Monocytes % 4.7 % Eosinophils % 1.1 % Basophils % 1.3 % Immature Gran # 0.05 H (0.00-0.04) 10*3/uL Neutrophils # 7.67 (1.80-7.70) 10*3/uL Lymphocytes # 3.27 (0.90-5.00) 10*3/uL Monocytes # 0.55 (0.20-1.00) 10*3/uL Eosinophils # 0.13 (0.04-0.35) 10*3/uL Basophils # 0.15 H (0.00-0.10) 10*3/uL Sodium 146 H (137-145) mmol/L Potassium 4.2 (3.5-5.1) mmol/L Chloride 109 H (98-107) mmol/L Carbon Dioxide 21 L (22-30) mmol/L Anion Gap 16 mmol/L BUN 17 (9-20) mg/dL Creatinine 1.23 (0.66-1.25) mg/dL Est GFR (CKD-EPI)AfAm 77 (>60 ml/min/1.73 sqM) Est GFR (CKD-EPI)NonAf 67 (>60 ml/min/1.73 sqM) Glucose 110 H (74-99) mg/dL Calcium 9.4 (8.4-10.2) mg/dL Magnesium 2.1 (1.6-2.3) mg/dL Total Bilirubin 0.5 (0.2-1.3) mg/dL AST 22 (17-59) U/L ALT 16 (4-49) U/L Alkaline Phosphatase 89 (38-126) U/L Total Protein 7.6 (6.3-8.2) g/dL Albumin 5.0 (3.5-5.0) g/dL Serum Alcohol 283 H* mg/dL Disposition Clinical Impression: Alcohol intoxication Disposition: ADMITTED IP TO THIS HOSP Referrals: None,Stated [Primary Care Provider] - 1-2 days Time of Disposition: 14:48
[2024-12-16] MEDS ORDERED: ALBUTEROL NEBULIZED 2.5 MG/3 ML INHALATION PRN (14:46)
--- NOTE | 2024-12-16 14:47 | P.HPIM ---
History of Present Illness H&P Date: 12/16/24 Patient is a 54-year-old male with past medical history of severe alcohol use disorder with history of alcoholic withdrawals requiring hospitalization, hypertension, COPD not on home oxygen, nicotine dependence, depression with recent inpatient psych admission for suicidal thoughts discharged on 10/22/2024, who presented to the ER on 12/16/2024 with alcohol intoxication. Patient refused to provide me with his history, he only shared that he is depressed and has been binge drinking lately, cannot tell me how much exactly Underwent extensive workup in the ER, he was afebrile with heart rate in 90s, elevated BP 151/111, SpO2 92 on room air. His lab work showed leukocytosis 11.8, normal hemoglobin and platelet count, sodium elevated 146, chloride 109, bicarb 21, creatinine 1.23, glucose 110, normal AST, ALT. Patient will be admitted for alcohol intoxication, impending alcohol withdrawal. Pertinent positives and negatives as discussed in HPI, a complete review of systems was performed and all other systems are negative. Patient seen and examined at bedside. Vital signs reviewed General Toxic appearing Derm: warm, dry Head: atraumatic, normocephalic, symmetric Eyes: EOMI, no lid lag, anicteric sclera, pupils equal round reactive to light ENT: Nose and ears atraumatic Neck: No thyromegaly, supple Mouth: no lip lesion, mucus membranes moist Cardiovascular: S1S2 reg, no murmur, no edema Lungs: clear to auscultation bilateral, no rhonchi, no rales, no wheeze, no accessory muscle use Abdominal: soft, nontender to palpation, no guarding, no appreciable organomegaly Ext: no gross muscle atrophy, muscle strength muscle strength 5 out of 5 in all 4 extremities, no contractures Neuro: CN II-XII grossly intact Psych: Tearful Assessment/Plan: Alcohol intoxication Severe alcohol use disorder Impending alcohol withdrawal -Continue CIWA with Ativan - Continue folic acid 1 mg p.o. daily, thiamine 100 mg p.o. daily - Social work consulted Hypernatremia -Received 2 L of normal saline in the ER -Start LR at 125 cc/h -Repeat BMP in the morning Depression - once reconsiled: Continue home Remeron 7.5 mg at bedtime, trazodone 50 mg at bedtime COPD not in acute exacerbation -Not on home inhalers, continue with albuterol nebulization as needed 4 times a day History of hypertension -Not on medications, will monitor blood pressure, expect numbers to be elevated due to intoxication/withdrawal, recommend follow-up with PCP after discharge The patient is admitted with an anticipated greater than 2 midnight stay as inpatient status for evaluation of alcohol intoxication, impending withdrawal. CODE STATUS full code DVT prophylaxis: Lovenox Anticipated discharge date: TBD Anticipated discharge place: [facility] A total of 40minutes was spent on the care of this complex patient more than 50% of the time was spent in counseling and care coordination.. Past Medical History Past Medical History: COPD, Hypertension Additional Past Medical History / Comment(s): IBS History of Any Multi-Drug Resistant Organisms: None Reported Past Surgical History: No Surgical Hx Reported Past Anesthesia/Blood Transfusion Reactions: No Reported Reaction Past Psychological History: Anxiety, Depression Smoking Status: Current every day smoker Past Alcohol Use History: Abuse, Daily Past Drug Use History: None Reported Medications and Allergies Home Medications Medication Instructions Recorded Confirmed Type Folic Acid 1 mg PO DAILY 30 Days #30 tab 10/22/24 Rx Mirtazapine [Remeron] 7.5 mg PO HS 30 Days #15 tab 10/22/24 Rx Multivitamins, Thera [Multivitamin 1 each PO DAILY 30 Days #30 tab 10/22/24 Rx (formulary)] Naltrexone HCl [Revia] 25 mg PO DAILY 30 Days #15 tab 10/22/24 Rx Nicotine 14Mg/24Hr Patch [Habitrol] 1 patch TRANSDERM DAILY patch 10/22/24 Rx Thiamine [Vitamin B-1] 100 mg PO DAILY 30 Days #30 tab 10/22/24 Rx traZODone HCL [Desyrel] 50 mg PO HS 30 Days #30 tab 10/22/24 Rx Allergies Allergy/AdvReac Type Severity Reaction Status Date / Time Penicillins Allergy Rash/Hives Verified 12/16/24 13:24 Physical Exam Vitals: Vital Signs Temp Pulse Resp BP Pulse Ox 12/16/24 13:18 98 F 90 17 151/111 92 L Intake and Output 12/15/24 12/16/24 12/16/24 22:59 06:59 14:59 Other: Weight 68.039 kg Results CBC & Chem 7: 12/16/24 13:24 12/16/24 13:24 Labs: Abnormal Lab Results - Last 24 Hours (Table) 12/16/24 12/16/24 Range/Units 13:24 13:24 WBC 11.82 H (4.50-10.00) 10*3/uL RBC 6.04 H (4.40-5.60) 10*6/uL MPV 8.3 L (9.5-12.2) fL Immature Gran # 0.05 H (0.00-0.04) 10*3/uL Basophils # 0.15 H (0.00-0.10) 10*3/uL Sodium 146 H (137-145) mmol/L Chloride 109 H (98-107) mmol/L Carbon Dioxide 21 L (22-30) mmol/L Glucose 110 H (74-99) mg/dL Serum Alcohol 283 H* mg/dL
[2024-12-16] MEDS: LACTATED RINGERS 1,000 ML IV SCH (16:39)
[2024-12-16] MEDS: NICOTINE 21MG/24HR PATCH TRANSDERM SCH (22:47)
[2024-12-17 08:14] VITALS: BP 158/92; PULSE 88; RESP 14; TEMP 98.2
[2024-12-17] MEDS: ENOXAPARIN 40 MG/0.4 ML SYRINGE SQ SCH (08:44)
[2024-12-17] MEDS: THIAMINE 100 MG TAB PO SCH (08:44)
[2024-12-17] MEDS: FOLIC ACID 1 MG TAB PO SCH (08:44)
[2024-12-17 11:00] LABS: Basophils # (A) 0.12 X 10*3/uL (0.00-0.10); Basophils % (A) 1.4 %; Eosinophils # (A) 0.14 X 10*3/uL (0.04-0.35); Eosinophils % (A) 1.6 %; HCT 46.2 % (39.6-50.0); HGB 15.2 g/dL (13.0-17.0); Lymphocytes # (A) 1.99 X 10*3/uL (0.90-5.00); Lymphocytes % (A) 22.7 %; MCHC 32.9 g/dL (32.0-37.0); MCV 82.1 FL (80.0-97.0); Mean Platelet Volume 8.6 FL (9.5-12.2); Monocytes # (A) 0.64 X 10*3/uL (0.20-1.00); Monocytes % (A) 7.3 %; NRBC Per 100 WBC 0 X 10*3/uL (0.00-0.01); Neutrophils # (A) 5.84 X 10*3/uL (1.80-7.70); Neutrophils % (A) 66.7 %; Platelet Count 272 X 10*3/uL (140-440); RBC 5.63 X 10*6/uL (4.40-5.60); RDW 14.2 % (11.5-14.5); WBC 8.76 X 10*3/uL (4.50-10.00)
[2024-12-17 11:06] LABS: Blood Urea Nitrogen 16.3 mg/dL (9.0-27.0); Calcium 9.2 mg/dL (8.7-10.3); Carbon Dioxide 20.4 mmol/L (21.6-31.8); Chloride 105 mmol/L (96-109); Glucose 77 mg/dL (70-110); Magnesium 1.7 mg/dL (1.5-2.4); Potassium 4.1 mmol/L (3.5-5.5); Sodium 141 mmol/L (135-145)
--- NOTE | 2024-12-17 12:06 | P.DS ---
Providers Date of admission: 12/16/24 14:44 Attending physician: Cynthia Agee MD Primary care physician: Stated None Hospital Course: Discharge Diagnosis: Alcohol intoxication Alcohol use disorder Depression Hypernatremia, resolved Hospital Course: Patient is a 54-year-old male with past medical history of severe alcohol use disorder with history of alcoholic withdrawals requiring hospitalization, hypertension, COPD not on home oxygen, nicotine dependence, depression with recent inpatient psych admission for suicidal thoughts discharged on 10/22/2024, who presented to the ER on 12/16/2024 with alcohol intoxication. Patient refused to provide me with his history, he only shared that he is depressed and has been binge drinking lately, cannot tell me how much exactly Underwent extensive workup in the ER, he was afebrile with heart rate in 90s, elevated BP 151/111, SpO2 92 on room air. His lab work showed leukocytosis 11.8, normal hemoglobin and platelet count, sodium elevated 146, chloride 109, bicarb 21, creatinine 1.23, glucose 110, normal AST, ALT. Patient will be admitted for alcohol intoxication. He was seen on 12/17/2024, no acute event overnight, he CIWA is minimal to 0, he is tolerating oral diet with and denies any complaints at this time. He was seen by social work and declined rehab at this time. Patient feels he is ready for discharge, patient's present at bedside. Patient seen and examined at bedside. Vital signs reviewed and stable. General: [nontoxic], [no distress], [appears at stated age] Derm: [warm], [dry] Head: [atraumatic], [normocephalic], [symmetric] Eyes: [EOMI], [no lid lag], [anicteric sclera] Mouth: [no lip lesion], [mucus membranes moist] Cardiovascular: [S1S2 reg], [no murmur] Lungs: [CTA bilateral], [no rhonchi, no rales] , [no accessory muscle use] Abdominal: [soft], [ nontender to palpation], [no guarding], [no appreciable organomegaly] Ext: [no gross muscle atrophy], [no edema], [no contractures] Neuro: [ CN II-XI grossly intact], [no focal neuro deficits] Psych: [Alert], [oriented], [appropriate affect] A total of [40minutes of time were spent preparing this complex discharge summary. Patient was discharged on 12/17/2024 Plan - Discharge Summary New Discharge Prescriptions: New Folic Acid 1 mg PO DAILY #30 tab Thiamine [Vitamin B-1] 100 mg PO DAILY #30 tab Discharge Medication List Folic Acid 1 mg PO DAILY #30 tab 12/17/24 [Rx] Thiamine [Vitamin B-1] 100 mg PO DAILY #30 tab 12/17/24 [Rx] Follow up Appointment(s)/Referral(s): [facility] [NON-STAFF] - 1-2 days [facility] [NON-STAFF] - 1-2 days (Contact a primary care office to become established with a provider) None,Stated [Primary Care Provider] - 1-2 days Activity/Diet/Wound Care/Special Instructions: Please, follow-up with your primary care physician. We provided you with AA meetings information, it is strongly recommended for you to attend those meetings since you are not interested in rehab at this time. Discharge/Stand Alone Forms: AA [place], Outpatient Counseling, In Substance Abuse Facilities Discharge Disposition: HOME SELF-CARE
== END 2024-12-17 12:41 | disposition home or self-care (01) ==
LOC: EC 13:14 → INTOOBSV 14:44 → 5NMEDONC 14:44
PROVIDERS: ADMIT Student in an Organized Health Care Education/Training Program; ATTEND Student in an Organized Health Care Education/Training Program
DX: F10.120 Alcohol abuse with intoxication, uncomplicated (principal); Y90.8 Blood alcohol level of 240 mg/100 ml or more; E87.0 Hyperosmolality and hypernatremia; I10 Essential (primary) hypertension; J44.9 Chronic obstructive pulmonary disease, unspecified; F32.A Depression, unspecified; F41.9 Anxiety disorder, unspecified; F17.200 Nicotine dependence, unspecified, uncomplicated; Z79.899 Other long term (current) drug therapy; Z88.0 Allergy status to penicillin
CPT/HCPCS: 96372; 99285; 36415; 80053; 80048; 83735 ×2; 85025 ×2; G0378 ×2; G0480; S4990 ×2; J1650; 80320; 96360; 96361

== ENCOUNTER 2025-02-08 15:35 | Emergency (ER) | payer OTHER ==
--- NOTE | 2025-02-08 16:16 | ED ---
Alcohol HPI - General Chief Complaint: Alcohol Stated Complaint: ETOH Time Seen by Provider: 02/08/25 16:14 Source: police, RN notes reviewed, old records reviewed, Caregiver Mode of arrival: ambulatory Limitations: no limitations - History of Present Illness Initial Comments: This is a 54-year-old male presenting part by the police department for acute alcohol intoxication. 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 ROS Other: All systems not noted in ROS Statement are negative. Past Medical History Past Medical History: COPD, Hypertension Additional Past Medical History / Comment(s): IBS, drinks one pint of fouthern comfort "most days" History of Any Multi-Drug Resistant Organisms: None Reported Past Surgical History: No Surgical Hx Reported Past Anesthesia/Blood Transfusion Reactions: No Reported Reaction Past Psychological History: Anxiety, Depression Smoking Status: Current every day smoker Past Alcohol Use History: Abuse, Daily, Heavy Past Drug Use History: None Reported General Exam Limitations: no limitations General appearance: appears intoxicated Head exam: Present: atraumatic, normocephalic, normal inspection Eye exam: Present: normal appearance, PERRL, EOMI. Absent: scleral icterus, conjunctival injection, periorbital swelling ENT exam: Present: normal exam, mucous membranes moist Neck exam: Present: normal inspection. Absent: tenderness, meningismus, lymphadenopathy Respiratory exam: Present: normal lung sounds bilaterally. Absent: respiratory distress, wheezes, rales, rhonchi, stridor Cardiovascular Exam: Present: regular rate, normal rhythm, normal heart sounds. Absent: systolic murmur, diastolic murmur, rubs, gallop, clicks GI/Abdominal exam: Present: soft, normal bowel sounds. Absent: distended, tenderness, guarding, rebound, rigid Extremities exam: Present: normal inspection, full ROM, normal capillary refill. Absent: tenderness, pedal edema, joint swelling, calf tenderness Back exam: Present: normal inspection Neurological exam: Present: alert, oriented X3, CN II-XII intact Psychiatric exam: Present: normal affect, normal mood Skin exam: Present: warm, dry, intact, normal color. Absent: rash Course Vital Signs 02/08/25 02/08/25 16:00 16:37 Temperature 100 F H 97.7 F Pulse Rate 103 H 86 Respiratory 20 18 Rate Blood Pressure 181/103 165/105 O2 Sat by Pulse 98 94 L Oximetry - Reevaluation(s) Reevaluation #1: 02/08/25 17:45 Medical records reviewed Reevaluation #2: 02/08/25 17:45 Patient symptoms continue to improve Reevaluation #3: 02/08/25 17:45 Patient informed of results questions answered Reevaluation #4: Was pt. sent in by a medical professional or institution (, PA, ASSISTANT WRESTLING COACH, urgent care, hospital, or penitentiary...) When possible be specific @ -no Did you speak to anyone other than the patient for history (EMS, parent, family, police, friend...)? What history was obtained from this source @ -no Did you review nursing and triage notes (agree or disagree)? Why? @ -agree Are old charts reviewed (outside hosp., previous admission, EMS record, old EKG, old radiological studies, urgent care reports/EKG's, penitentiary records)? Report findings @ -yes Differential Diagnosis (chest pain, altered mental status, abdominal pain women, abdominal pain men, vaginal bleeding, weakness, fever, dyspnea, syncope, headache, dizziness, GI bleed, back pain, seizure, CVA, palpatations, mental health, musculoskeletal)? @ -prior EKG interpreted by me (3pts min.). @ -yes X-rays interpreted by me (1pt min.). @ -yes negative for acute disease CT interpreted by me (1pt min.). @ -no U/S interpreted by me (1pt. min.). @ -no What testing was considered but not performed or refused? (CT, X-rays, U/S, labs)? Why? @ -none What meds were considered but not given or refused? Why? @ -none Did you discuss the management of the patient with other professionals (professionals i.e. , PA, ASSISTANT WRESTLING COACH, lab, RT, psych nurse, social insurance specialist, trial lawyer, teacher, chief lending officer, ed case manager)? Give summary @ -no Was smoking cessation discussed for >3mins.? @ -no Was critical care preformed (if so, how long)? @ -no Were there social determinants of health that impacted care today? How? (Homelessness, low income, unemployed, alcoholism, drug addiction, transport ation, low edu. Level, literacy, decrease access to med. care, correction, rehab)? @ -none Was there de-escalation of care discussed even if they declined (Discuss DNR or withdrawal of care, Hospice)? DNR status @ -no What co-morbidities impacted this encounter? (DM, HTN, Smoking, COPD, CAD, Cancer, CVA, ARF, Chemo, Hep., AIDS, mental health diagnosis, sleep apnea, morbid obesity)? @ -none Was patient admitted / discharged? Hospital course, mention meds given and route, prescriptions, significant lab abnormalities, going to OR and other pertinent info. @ - Undiagnosed new problem with uncertain prognosis? @ -no Drug Therapy requiring intensive monitoring for toxicity (Heparin, Nitro, Insulin, Cardizem)? @ -no Were any procedures done? @ -no Diagnosis/symptom? @ - Acute, or Chronic, or Acute on Chronic? @ -Acute Uncomplicated (without systemic symptoms) or Complicated (systemic symptoms)? @ -Complicated Side effects of treatment? @ -no Exacerbation, Progression, or Severe Exacerbation? @ -exacerbation Poses a threat to life or bodily function? How? (Chest pain, [place], [place], pneumonia, PE, COPD, DKA, ARF, appy, cholecystitis, CVA, Diverticulitis, Homicidal, Suicidal, threat to staff... and all critical care pts) @ -yes Reevaluation #5: Differential Mental Health Depression, anxiety, bipolar, psychosis, schizophrenia, borderline personality, situational depression, adjustment disorder, behavioral disorder, brain tumor, malingering, substance abuse, encephalopathy, medication reaction, dementia, hypothyroidism, degenerative neurologic disorder, lupus.... This is not meant to be all-inclusive list Medical Decision Making - Medical Decision Making 54 male with acute alcohol intoxication. Patient is not homicidal or suicidal patient will discharge to care of family - Lab Data Result diagrams: 02/08/25 16:58 02/08/25 16:58 Lab Results 02/08/25 02/08/25 Range/Units 16:58 16:58 WBC 11.61 H (4.50-10.00) 10*3/uL RBC 5.85 H (4.40-5.60) 10*6/uL Hgb 16.1 (13.0-17.0) g/dL Hct 47.0 (39.6-50.0) % MCV 80.3 (80.0-97.0) fL MCH 27.5 (27.0-32.0) pg MCHC 34.3 (32.0-37.0) g/dL Plt Count 340 (140-440) 10*3/uL MPV 7.8 L (9.5-12.2) fL Immature Gran % (Auto) 0.3 % Neutrophils % 60.7 % Lymphocytes % 32.1 % Monocytes % 5.4 % Eosinophils % 0.7 % Basophils % 0.8 % Immature Gran # 0.03 (0.00-0.04) 10*3/uL Neutrophils # 7.05 (1.80-7.70) 10*3/uL Lymphocytes # 3.73 (0.90-5.00) 10*3/uL Monocytes # 0.63 (0.20-1.00) 10*3/uL Eosinophils # 0.08 (0.04-0.35) 10*3/uL Basophils # 0.09 (0.00-0.10) 10*3/uL Sodium 143 (137-145) mmol/L Potassium 4.0 (3.5-5.1) mmol/L Chloride 102 (98-107) mmol/L Carbon Dioxide 22 (22-30) mmol/L Anion Gap 19 mmol/L BUN 16 (9-20) mg/dL Creatinine 1.08 (0.66-1.25) mg/dL Est GFR (CKD-EPI)AfAm 89 (>60 ml/min/1.73 sqM) Est GFR (CKD-EPI)NonAf 77 (>60 ml/min/1.73 sqM) Glucose 90 (74-99) mg/dL Calcium 9.4 (8.4-10.2) mg/dL Phosphorus 4.3 (2.5-4.5) mg/dL Magnesium 2.2 (1.6-2.3) mg/dL Total Bilirubin 0.9 (0.2-1.3) mg/dL AST 34 (17-59) U/L ALT 22 (4-49) U/L Alkaline Phosphatase 118 (38-126) U/L Total Protein 7.9 (6.3-8.2) g/dL Albumin 5.2 H (3.5-5.0) g/dL Serum Alcohol 345 H* mg/dL Disposition Clinical Impression: Alcohol abuse, Alcohol intoxication Disposition: HOME SELF-CARE Condition: Fair Instructions (If sedation given, give patient instructions): Alcohol Intoxication (ED) Is patient prescribed a controlled substance at d/c from ED?: No Referrals: None,Stated [Primary Care Provider] - 1-2 days Time of Disposition: 18:00
[2025-02-08 16:39] VITALS: RESP 18; TEMP 97.7
[2025-02-08] MEDS: SODIUM CHLORIDE 0.9% 1,000 ML IV STA (17:03)
[2025-02-08 17:10] LABS: Basophils # (A) 0.09 10*3/uL (0.00-0.10); Basophils % (A) 0.8 %; Eosinophils # (A) 0.08 10*3/uL (0.04-0.35); Eosinophils % (A) 0.7 %; HCT 47.0 % (39.6-50.0); HGB 16.1 g/dL (13.0-17.0); Lymphocytes # (A) 3.73 10*3/uL (0.90-5.00); Lymphocytes % (A) 32.1 %; MCH 27.5 pg (27.0-32.0); MCHC 34.3 g/dL (32.0-37.0); MCV 80.3 fL (80.0-97.0); Monocytes # (A) 0.63 10*3/uL (0.20-1.00); Monocytes % (A) 5.4 %; Neutrophils # (A) 7.05 10*3/uL (1.80-7.70); Neutrophils % (A) 60.7 %; Platelet Count 340 10*3/uL (140-440); RBC 5.85 10*6/uL (4.40-5.60); RDW 13.9 % (11.5-14.5); WBC 11.61 10*3/uL (4.50-10.00)
[2025-02-08 17:31] LABS: ALT 22 U/L (4-49); AST 34 U/L (17-59); African American GFR (CKD) 89 (>60 ml/min/1.73 sqM); Albumin 5.2 g/dL (3.5-5.0); Alkaline Phosphatase 118 U/L (38-126); Anion Gap 19 mmol/L; Blood Urea Nitrogen 16 mg/dL (9-20); Calcium 9.4 mg/dL (8.4-10.2); Carbon Dioxide 22 mmol/L (22-30); Chloride 102 mmol/L (98-107); Glucose 90 mg/dL (74-99); Magnesium 2.2 mg/dL (1.6-2.3); Non-African American GFR(CKD) 77 (>60 ml/min/1.73 sqM); Potassium 4.0 mmol/L (3.5-5.1); Sodium 143 mmol/L (137-145); Total Protein 7.9 g/dL (6.3-8.2)
[2025-02-08 18:15] VITALS: BP 153/56; PULSE 73
[2025-02-08 18:15] LABS: Barbiturate Screen,Urine Not Detected (NotDetected); Benzodiazepines Screen,Urine Not Detected (NotDetected); Opiate Screen,Urine Not Detected (NotDetected); Oxycodone Screen, Urine Not Detected (NotDetected); Phencyclidine Screen,Urine Not Detected (NotDetected); Tricyclic Antidepressant,Urine Not Detected (NotDetected); Urn Cannabinoid Scrn Not Detected (NotDetected)
[2025-02-08 18:46] LABS: Lipase 3957 U/L (23-300)
== END 2025-02-08 18:26 | disposition home or self-care (01) ==
LOC: EC 15:35
DX: F10.129 Alcohol abuse with intoxication, unspecified (principal); F17.200 Nicotine dependence, unspecified, uncomplicated; Z88.0 Allergy status to penicillin
CPT/HCPCS: 36415; 80053; 80306; 80320; 82075; 83690; 83735; 84100; 85025; 96360; 99284

== ENCOUNTER 2025-02-14 19:03 | Emergency (ER) | payer OTHER ==
[2025-02-14 19:09] VITALS: BP 135/90; PULSE 82; RESP 18; TEMP 98
--- NOTE | 2025-02-14 19:51 | ED ---
Alcohol HPI - General Chief Complaint: Alcohol Stated Complaint: detox Time Seen by Provider: 02/14/25 19:11 Source: patient, police Mode of arrival: ambulatory Limitations: no limitations - History of Present Illness Initial Comments: This patient is a 54-year-old man who arrives to have evaluation reportedly for intoxication. It appears that the patient's had phoned 911 about the patient being intoxicated. The imaging specialist department reportedly sent personnel and brought the patient here. [facility] personnel report that there was no criminal complaint filed against the patient and he has not made any suicidal or homicidal remarks. When I interviewed the patient, he denies any complaints. He denies having fall or injury. He states he had been drinking. MD Complaint: alcohol intoxication Last Drink: unknown Recent Trauma: No Associated Symptoms: denies other symptoms Treatments Prior to Arrival: none Chronic Alcohol Use: Yes - Related Data Previous Rx's Medication Instructions Recorded Folic Acid 1 mg PO DAILY #30 tab 12/17/24 Thiamine [Vitamin B-1] 100 mg PO DAILY #30 tab 12/17/24 Allergies Allergy/AdvReac Type Severity Reaction Status Date / Time Penicillins Allergy Rash/Hives Verified 02/14/25 19:09 Review of Systems ROS Statement: Those systems with pertinent positive or pertinent negative responses have been documented in the HPI. ROS Other: All systems not noted in ROS Statement are negative. Constitutional: Denies: fever Respiratory: Denies: cough, dyspnea Cardiovascular: Denies: chest pain Gastrointestinal: Denies: abdominal pain, vomiting Musculoskeletal: Denies: back pain Neurological: Denies: headache Psychiatric: Denies: homicidal thoughts, suicidal thoughts Past Medical History Past Medical History: COPD, Hypertension Additional Past Medical History / Comment(s): IBS, drinks one pint of fouthern comfort "most days" History of Any Multi-Drug Resistant Organisms: None Reported Past Surgical History: No Surgical Hx Reported Past Anesthesia/Blood Transfusion Reactions: No Reported Reaction Past Psychological History: Anxiety, Depression Smoking Status: Current every day smoker Past Alcohol Use History: Abuse, Daily, Heavy Past Drug Use History: None Reported General Exam Limitations: no limitations General appearance: alert, in no apparent distress, appears intoxicated Head exam: Present: atraumatic, normocephalic Eye exam: Present: normal appearance. Absent: scleral icterus, conjunctival injection Neck exam: Present: normal inspection, full ROM. Absent: tenderness Respiratory exam: Present: normal lung sounds bilaterally. Absent: respiratory distress, wheezes, rales, rhonchi, stridor, chest wall tenderness Cardiovascular Exam: Present: regular rate, normal rhythm, normal heart sounds. Absent: systolic murmur, diastolic murmur, rubs, gallop GI/Abdominal exam: Present: soft. Absent: distended, tenderness, guarding, rebound, rigid, mass Extremities exam: Present: normal inspection, normal capillary refill. Absent: pedal edema, calf tenderness Back exam: Present: normal inspection. Absent: CVA tenderness (R), CVA tenderness (L), vertebral tenderness Neurological exam: Present: alert, oriented X3. Absent: motor sensory deficit Psychiatric exam: Absent: homicidal ideation, suicidal ideation Skin exam: Present: warm, dry, intact, normal color. Absent: rash Course Vital Signs 02/14/25 19:07 Temperature 98.0 F Pulse Rate 82 Respiratory 18 Rate Blood Pressure 135/90 O2 Sat by Pulse 97 Oximetry Medical Decision Making - Medical Decision Making Patient is 54-year-old man who is brought here by [facility] personnel after they were called to the scene reportedly for him being intoxicated. I was called away from the room to see another patient. The patient's then reportedly came back and the patient and his left together. Was pt. sent in by a medical professional or institution ([facility], GIN FEEDER, urgent care, hospital, or residential...) When possible be specific @ -[No] Did you speak to anyone other than the patient for history (EMS, parent, family, police, friend...)? What history was obtained from this source @ -[No] Did you review nursing and triage notes (agree or disagree)? Why? @ -[I reviewed and agree with nursing and triage notes] Were old charts reviewed (outside hosp., previous admission, EMS record, old EKG, old radiological studies, urgent care reports/EKG's, residential records)? Report findings @ -[No old charts were reviewed] Differential Diagnosis (chest pain, altered mental status, abdominal pain women, abdominal pain men, vaginal bleeding, weakness, fever, dyspnea, syncope, headache, dizziness, GI bleed, back pain, seizure, CVA, palpatations, mental health, musculoskeletal)? @ -[Differential Mental Health Depression, anxiety, bipolar, psychosis, schizophrenia, borderline personality, situational depression, adjustment disorder, behavioral disorder, brain tumor, malingering, substance abuse, encephalopathy, medication reaction, dementia, hypothyroidism, degenerative neurologic disorder, lupus.... This is not meant to be all-inclusive list EKG interpreted by me (3pts min.). @ -[As above] X-rays interpreted by me (1pt min.). @ -[None done] CT interpreted by me (1pt min.). @ -[None done] U/S interpreted by me (1pt. min.). @ -[None done] What testing was considered but not performed or refused? (CT, X-rays, U/S, labs)? Why? @ -[None] What meds were considered but not given or refused? Why? @ -[None] Did you discuss the management of the patient with other professionals (professionals i.e. , PA, GIN FEEDER, lab, RT, psych nurse, foster care social worker, roll cleaner, teacher, guest relation officer, bilingual patient support caseworker)? Give summary @ -[No] Was smoking cessation discussed for >3mins.? @ -[No] Was critical care preformed (if so, how long)? @ -[No] Were there social determinants of health that impacted care today? How? (Homelessness, low income, unemployed, alcoholism, drug addiction, transportation, low edu. Level, literacy, decrease access to med. care, residential, rehab)? @ -[No] Was there de-escalation of care discussed even if they declined (Discuss DNR or withdrawal of care, Hospice)? DNR status @ -[No] What co-morbidities impacted this encounter? (DM, HTN, Smoking, COPD, CAD, Cancer, CVA, ARF, Chemo, Hep., AIDS, mental health diagnosis, sleep apnea, morbid obesity)? @ -[None] Was patient admitted / discharged? Hospital course, mention meds given and route, prescriptions, significant lab abnormalities, going to OR and other pertinent info. @ -[See the note above Undiagnosed new problem with uncertain prognosis? @ -[No] Drug Therapy requiring intensive monitoring for toxicity (Heparin, Nitro, Insulin, Cardizem)? @ -[No] Were any procedures done? @ -[No] Diagnosis/symptom? @ -[Acute alcohol intoxication Acute, or Chronic, or Acute on Chronic? @ -[Acute Uncomplicated (without systemic symptoms) or Complicated (systemic symptoms)? @ -[Uncomplicated Side effects of treatment? @ -[No] Exacerbation, Progression, or Severe Exacerbation? @ -[No] Poses a threat to life or bodily function? How? (Chest pain, [place], [place], pneumonia, PE, COPD, DKA, ARF, appy, cholecystitis, CVA, Diverticulitis, Homicidal, Suicid al, threat to staff... and all critical care pts) @ -[No] All treatments are based on ideal body weight as in ED triage Disposition Clinical Impression: Alcohol intoxication Disposition: HOME SELF-CARE Condition: Fair Instructions (If sedation given, give patient instructions): Alcohol Intoxication (ED) Is patient prescribed a controlled substance at d/c from ED?: No Referrals: None,Stated [Primary Care Provider] - 1-2 days
== END 2025-02-14 19:50 | disposition home or self-care (01) ==
LOC: EC 19:03
DX: F10.129 Alcohol abuse with intoxication, unspecified (principal); F17.200 Nicotine dependence, unspecified, uncomplicated; Z88.0 Allergy status to penicillin
CPT/HCPCS: 82075; 99283